=== PATIENT | female | born 1960 | race Caucasian/White ===

== ENCOUNTER → 2017-07-10 14:55 | Outpatient (CLI) | payer OTHER, SELFPAY ==
[2017-06-17 07:40] VITALS: BP 96/66
--- NOTE | 2017-07-10 14:58 | HPBI_ITS ---
MAMMOGRAPHY - BILATERAL SCREENING REASON FOR EXAM: Female, 56 years old. Routine annual screening examination. PERTINENT HISTORY: Sister with breast cancer. Grandmother with breast cancer. Prior right stereotactic biopsy and lumpectomy for atypical hyperplasia. TECHNIQUE: Digital bilateral breast souleymane (3D mammographic acquisition) in the CC and MLO projections. 2-D mediolateral oblique (MLO) and craniocaudad (CC) views of both breasts were obtained. CAD: Full Field Digital Mammography with Computer Added Detection was performed. COMPARISON: Comparison is made with prior study dated January 22, 2016 and May 09, 2014. FINDINGS: Breast Composition: The breasts are extremely dense, which lowers the sensitivity of mammography. There are no dominant masses or suspicious calcifications. Stable focal architectural distortion is seen in the upper lateral portion of the right breast at the site of the surgical procedure. This is unchanged. No other significant abnormalities are identified. There has been no significant change since the prior study. HPBI/SCREENING MAMM (CAD), BILAT IMPRESSION: Stable bilateral screening mammogram. Yearly follow-up mammogram recommended. (A) ASSESSMENT CATEGORY: BIRADS Category 2: Benign. A letter regarding these results will be sent to the patient by the facility within 30 days. Approximately 10% of breast cancers are not detected by mammography. A normal mammogram should not delay biopsy of a clinically suspicious abnormality. [id number] Electronically Signed: Renard Powell MD at 16:02 EST Tel [phone], Service support ,
== END ==
PROVIDERS: Family Provider Family Medicine; PCP Family Medicine; Visit Provider Family Medicine
DX: Z12.31 Encounter for screening mammogram for malignant neoplasm of breast (principal)
CPT/HCPCS: 77063; 77067

== ENCOUNTER → 2018-06-05 16:40 | Outpatient (CLI) | payer OTHER, SELFPAY ==
[2018-06-05 16:48] LABS: Lyme Ab Screen Interpretation REF LAB
[2018-06-05 17:19] LABS: Absolute Neutrophil Count 2.8 X10^3/uL (2.0-7.7); Basophil# 0.04 X10^3/uL; Basophil% 0.7 % (0-1); Eosinophil# 0.04 X10^3/uL; Eosinophils% 0.7 % (0-5); Hematocrit 39.4 % (37-47); Hemoglobin 13.2 g/dl (12.0-15.0); Lymphocyte % 43.5 % (19-41); Mean Corp Hgb Conc 33.5 g/gl (32-36); Mean Corpuscular Hgb 30.7 pg (27.0-32.0); Mean Corpuscular Volume 91.6 fL (81-99); Mean Platelet Vol. 11.1 fl (6.2-12.0); Monocyte# 0.27 X10^3/uL; Monocyte% 4.9 % (0-10); Neutrophil # 2.77 X10^3/uL (2.7-7.7); Neutrophil % 50.2 % (47-70); Platelet Count 151 K/mm3 (150-450); RBC Distribution Width CV 12.6 % (11.6-14.6); RBC Distribution Width SD 42.4 fl (35.1-43.9); White Blood Count 5.5 K/mm3 (4.4-11.0)
[2018-06-05 17:20] LABS: POSITIVE COUNT NO; POSITIVE DIFFERENTIAL NO; POSITIVE MORPHOLOGY NO
[2018-06-05 17:52] LABS: Vitamin B12 438 pg/mL (211-911)
[2018-06-05 18:22] LABS: ALB/GLOB Ratio 1.5 RATIO (0.9-2.4); AST(SGOT) 51 U/L (15-37); Alanine Aminotransfer ALT/SGPT 61 U/L (13-56); Albumin, Serum 4.3 g/dL (3.2-5.0); Alkaline Phosphatase 85 U/L (45-117); Anion Gap 10 (5-15); BUN 20 mg/dL (7-18); BUN/Creat Ratio 18.9 RATIO (10-20); Calcium,Total 9.6 mg/dL (8.5-10.1); Chloride 103 mmol/L (98-107); Creatinine, Serum 1.06 mg/dL (0.55-1.02); EST Glomerular Filtration Rate 57 mL/min (>60); Est Glom Filt Rate - Afr Amer 69 mL/min (>60); Globulin 2.9 g/dL (2.2-4.2); Glucose 88 mg/dL (74-106); Potassium 4.1 mmol/L (3.5-5.1); Protein, Total 7.2 g/dL (6.4-8.2); Sodium Level 139 mmol/L (136-145)
[2018-06-09 08:10] LABS: Testosterone, % Free 0.94 % (0.50-2.80); Testosterone, Free 0.23 ng/dL (0.10-0.85); Testosterone, Total 24 ng/dL (3-41)
[2018-06-09 08:44] LABS: Lyme Scn Total Ab w/Rflx <0.91 ISR (0.00-0.90)
== END ==
PROVIDERS: Family Provider Family Medicine; PCP Family Medicine; Referring Provider Family Medicine; Visit Provider Family Medicine
DX: I88.0 Nonspecific mesenteric lymphadenitis (principal); G25.0 Essential tremor
CPT/HCPCS: 36415; 80053; 82607; 82746; 84402; 84403; 84439; 85025; 86618

== ENCOUNTER → 2018-06-15 12:39 | Outpatient (CLI) | payer OTHER, SELFPAY ==
--- NOTE | 2018-06-15 12:48 | MRI_ITS ---
STUDY: MRI BRAIN WITHOUT CONTRAST REASON FOR EXAM: Female, 57 years old. Tremors for 6 months TECHNIQUE: Standardized multiplanar fat and water weighted pulse sequences were obtained. COMPARISON: None. FINDINGS: Normal size of the ventricles and extra-axial spaces for the patient's age. Normal white matter tracts of the supratentorial brain. Normal bilateral basal ganglia. Normal thalami. There is no extra-axial fluid accumulation. Normal flow voids within the major intracranial circulation suggesting patency by spin echo criteria. Normal sella turcica, pituitary gland, infundibular stalk, optic chiasm and hypothalamus. Normal tectal plate and pineal gland. Normal midbrain, carol and medulla. Normal cerebellum. Normal basal cisterns. Normal bilateral temporal bones. Normal bilateral internal auditory canals. No demonstrated orbital abnormality, within the constraints of a routine brain study. Normal visualized paranasal sinuses. Normal calvarium and skull base. Normal visualized soft tissue structures. Normal visualized upper cervical spine. MRI/Brain without Contrast IMPRESSION: Normal unenhanced MRI of the brain. Electronically Signed: Dain Tinoco MD at 15:05 EST Tel , Service support ,
== END ==
PROVIDERS: Family Provider Family Medicine; PCP Family Medicine; Referring Provider Family Medicine; Visit Provider Family Medicine
DX: G25.0 Essential tremor (principal)
CPT/HCPCS: 70551

== ENCOUNTER → 2018-07-21 08:31 | Outpatient (CLI) | payer OTHER, SELFPAY ==
--- NOTE | 2018-07-21 08:35 | BD_ITS ---
STUDY: DUAL ENERGY X-RAY ABSORPTIOMETRY / DXA REASON FOR EXAM: Female, 57 years old. The patient is postmenopausal. Loss of height. TECHNIQUE: Bone Mineral Density (BMD) measurements of lumbar spine and bilateral hips were obtained. COMPARISON: None. FINDINGS: Lumbar Spine (L1-L4): g/cm2 (0.922) / T-score (-2.1) / Z-score (-1.2) Findings are suggestive of osteopenia with a moderate fracture risk. Left Femur Total: g/cm2 (0.949) / T-score (-0.5) / Z-score (0.3) Left Femoral Neck: g/cm2 (0.858) / T-score (-1.3) / Z-score (-0.2) Right Femur Total: g/cm2 (0.978) / T-score (-0.2) / Z-score (0.5) Right Femoral Neck: g/cm2 (0.918) / T-score (-0.9) / Z-score (0.2) BD/Dexa Bone Density Study IMPRESSION: The patient is considered osteopenic as outlined below according to World [place] Organization (WHO) criteria with a moderate fracture risk. Reference Information: The T-score is the number of standard deviations above or below the standard which is normal for young adults at their peak bone mineral density. The World Health Organization (WHO) interprets the T-scores as follows: Above -1 Normal bone density Between -1 and -2.5 Osteopenia Equal to / or below -2.5 Osteoporosis As a practical clinical guideline, osteopenia may be graded as follows: Mild -1 through -1.5 Moderate -1.6 through -2.0 Severe -2.1 through -2.4 The Z-score is the number of standard deviations above or below age-matched controls. A Z-score of less than -1.5 would be considered abnormal. References: 1. NIH Osteoporosis and Related Bone Diseases http://www.osteo.org 2. International Society for Clinical Densitometry http://www.iscd.org 3. National Osteoporosis Foundation http://www.nof.org Electronically Signed: Renard Powell MD at 13:12 EST , Service support ,
--- NOTE | 2018-07-21 08:36 | BI_ITS ---
MAMMOGRAPHY - BILATERAL SCREENING REASON FOR EXAM: Female, 57 years old. Routine annual screening examination. PERTINENT HISTORY: History of right lumpectomy. Remote right excisional breast biopsy and stereotactic breast biopsy. One month history of tamoxifen. Weight loss. Sister with breast cancer. Grandmother with breast cancer TECHNIQUE: Digital bilateral breast souleymane (3D mammographic acquisition) in the CC and MLO projections. 2-D mediolateral oblique (MLO) and craniocaudad (CC) views of both breasts were obtained. CAD: Full Field Digital Mammography with Computer Added Detection was performed. COMPARISON: Comparison is made with prior study dated July 10, 2017 and January 22, 2016. FINDINGS: Breast Composition: The breasts are extremely dense, which lowers the sensitivity of mammography. The amount of breast tissue has increased as compared to prior study. Stable architectural distortion in the upper lateral portion right breast. There are no dominant masses or suspicious calcifications. Scattered microcalcifications in the left breast. No focal clustering is seen. No other significant abnormalities are identified. BI/SCREENING MAMM (CAD), BILAT IMPRESSION: Dense breast as compared to prior study. Yearly follow-up mammogram recommended. (A) ASSESSMENT CATEGORY: BIRADS Category 2: Benign. A letter regarding these results will be sent to the patient by the facility within 30 days. Approximately 10% of breast cancers are not detected by mammography. A normal mammogram should not delay biopsy of a clinically suspicious abnormality. [id number] Electronically Signed: Renard Powell MD at 10:08 EST , Service support ,
== END ==
PROVIDERS: Family Provider Family Medicine; PCP Family Medicine; Referring Provider Obstetrics & Gynecology; Visit Provider Obstetrics & Gynecology
DX: Z12.31 Encounter for screening mammogram for malignant neoplasm of breast (principal); Z13.820 Encounter for screening for osteoporosis
CPT/HCPCS: 77063; 77067; 77080

== ENCOUNTER → 2018-08-06 12:21 | Outpatient (CLI) | payer OTHER, SELFPAY ==
--- NOTE | 2018-08-06 12:30 | MRI_ITS ---
STUDY: BILATERAL BREAST MR WITHOUT AND WITH CONTRAST REASON FOR EXAM: Female, 57 years old. Dense breasts. History of right lumpectomy, remote right excisional breast biopsy and stereotactic breast biopsy. Grandmother and sister with breast cancer. TECHNIQUE: Multi-sequence multi-echo imaging of both breasts was performed with a dedicated breast coil. T1-weighted and T2-weighted images were performed before the administration of contrast. T1-weighted images were also performed after the administration of Gadavist 5 IV without complications. COMPARISON: Screening mammograms dated July 21, 2017 and July 10, 2017 showing dense fibroglandular tissue with scattered calcifications. FINDINGS: RIGHT BREAST: The breast tissue is markedly dense with minimal background enhancement. There are no abnormal enhancing masses or areas of non-mass enhancement in the right breast. LEFT BREAST: The breast tissue is markedly dense with minimal background enhancement. There are no abnormal enhancing masses or areas of non-mass enhancement in the left breast. There are no enlarged or abnormal lymph nodes. There is no abnormality in the visualized regions of the chest or liver. MRI/Breast Bilateral W/O and W IMPRESSION: No abnormality on the breast MRI examination with contrast. CATEGORY: BIRADS Category 1: Negative. A letter regarding these results will be sent to the patient by the facility within 30 days. Electronically Signed: Huang Wan MD at 15:53 EST , Service support ,
[2018-08-06 13:15] LABS: CREATININE FINGERSTICK 0.9 mg/dL (0.55-1.02)
== END ==
PROVIDERS: Family Provider Family Medicine; PCP Family Medicine; Referring Provider Obstetrics & Gynecology; Visit Provider Obstetrics & Gynecology
DX: R92.2 Inconclusive mammogram (principal)
CPT/HCPCS: 77049; A9585; A4216; C8908

== ENCOUNTER 2018-09-08 14:30 | Outpatient (RCR) | payer SELFPAY ==
--- NOTE | 2019-02-08 13:53 | HP.PT.NRP ---
HP - Discharge Summary (1) - Patient Information FIDEL GIRON was seen in my office for initial evaluation on 09/07/18. The following Plan of Care was established for this patient: - Anticipated Interventions Patient/Client Instruction: Educate patient on: Condition, Plan of Care, Risk Factors, Benefits of Fitness Program For the Purpose of:: To facilitate caregiver knowledge, To improve self management, To prevent re-injury, To improve ability to perform tasks related to life management, To improve tolerance to ADL's Manual Therapy Techniques to Include: Mobilization, Passive ROM, Functional dry needling, Soft tissue mobilization For the Purpose of:: To decrease pain, To increase ROM, To improve health of tissue, To decrease soft tissue restriction, To increase flexibility/ROM This patient was last seen in our office 09/08/18. Pertinent comments regarding their Physical therapy will appear below: Pt. was treated with DN for her foot and gluteal pain. Pt. had no pain at her las visit. Pt. has not been seen in several months and will be DC from PT at this point in time. At this point I will be discontinuing this patient from physical therapy. I would be happy to see this patient again in the future if found appropriate by the physician. Thank you! Zach Ly DPT
== END 2018-09-08 19:00 | disposition home or self-care (01) ==
LOC: PT 14:30
PROVIDERS: Family Provider Family Medicine; PCP Family Medicine
DX: R69 Illness, unspecified (principal)

== ENCOUNTER → 2018-09-10 08:11 | Outpatient (CLI) | payer OTHER, SELFPAY ==
--- NOTE | 2018-09-10 08:12 | RAD_ITS ---
STUDY: X-RAY - PELVIS AND LEFT HIP REASON FOR EXAM: Female, 57 years old. Hip pain TECHNIQUE: 3 views of the pelvis and hip. COMPARISON: None. FINDINGS: There is a non-specific bowel gas pattern. Normal visualized soft tissue structures. Normal bilateral iliac wings, sacroiliac joints and visualized sacrum. Normal bilateral superior and inferior pubic rami. Normal pubic symphysis. Normal bilateral ischial tuberosities. Normal visualized femoral head. Normal acetabulum. Normal hip joint. RAD/HIP, UNI W/ Pelvis 2-3 Views IMPRESSION: Normal x-ray examination of the pelvis and hip. Electronically Signed: Yinka Caicedo MD at 20:41 EDT , Service support ,
--- NOTE | 2018-09-10 08:12 | RAD_ITS ---
STUDY: X-RAY - LUMBAR SPINE REASON FOR EXAM: Female, 57 years old. Low back and left hip pain TECHNIQUE: 4 view(s) of the lumbar spine were obtained. COMPARISON: Prior study of 03/21/2010 FINDINGS: Normal lumbar lordosis. There is no substantial scoliosis. There is a normal alignment of the vertebrae. Normal vertebral bodies and endplates. Normal disc space heights. The soft tissue structures are unremarkable. RAD/L/S Spine Min 4 Views IMPRESSION: Normal x-ray examination of the lumbar spine. Electronically Signed: Yinka Caicedo MD at 20:42 EDT , Service support ,
== END ==
PROVIDERS: Family Provider Family Medicine; PCP Family Medicine; Referring Provider Physician Assistant; Visit Provider Physician Assistant
DX: M25.552 Pain in left hip (principal); M54.5 Low back pain; M79.18 Myalgia, other site
CPT/HCPCS: 72110; 73502

== ENCOUNTER → 2019-10-27 14:56 | Outpatient (CLI) | payer OTHER, SELFPAY ==
--- NOTE | 2019-10-27 14:57 | RAD_ITS ---
STUDY: X-RAY - LEFT KNEE REASON FOR EXAM: Female, 59 years old. 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 COMPARISON: None. FINDINGS: Normal visualized distal femur. Normal visualized proximal tibia and fibula. Normal proximal tibiofibular articulation. There is mild degenerative arthrosis of the medial femorotibial compartment. Normal lateral femorotibial compartment. Normal patellofemoral articulation. The soft tissue structures are unremarkable. RAD/Knee 4 or More Views IMPRESSION: Mild degenerative changes. Electronically Signed: Laya Whittaker MD at 15:28 EDT Tel , Service support ,
== END ==
PROVIDERS: PCP Family Medicine; Referring Provider Physician Assistant; Visit Provider Physician Assistant
DX: M25.562 Pain in left knee (principal)
CPT/HCPCS: 73564

== ENCOUNTER 2019-11-18 07:00 | Outpatient (RCR) | payer OTHER, SELFPAY ==
--- NOTE | 2019-11-02 08:36 | HP.PTEVAL_ITS ---
Patient's Visit Information FIDEL GIRON is a 59 year old F referred to Physical Therapy by TJ Carranza with a diagnosis of Left Pes Anserine Bursitis- Left Proximal Medial Gastroc Strain. Date of Evaluation: 11/02/19 Physical Therapist: Verna Corrales DPT - Visit Plan Frequency: 3x /Week Duration: 3 Weeks Plan: 2x a week 30 for PT (dry needling, manual therapy, ultrasound) then stretching and strength. 1x a week 60 min of stretching/strength. Focus on Core strength/stabilization and GENTLE posterior chain strengthening- (Chronic high HS Injury) - Subjective Patient reports left sided knee bursitis and calf pain. She came for dry needling thought it might be meniscus but doesn't think so. When she is running it stops her- last night when she was doing yoga she was halving popping issues. The knee is painful behind the knee. Will radiat to low hamstring and calf pain. The pain is immediate when she starts then it eases up- most painful running up a hill. Describes the pain as dull and achy to sharp pains. Notices it through the whole run. If she walks the pain is less. Worst: 4/10 Best: 0/10 does have pain doing ADL's. Running- 20 miles a week- 4- normally runs 4-5 miles but does have longer stretches. Took about a week and half off and is taking Meloxicam- which is helping. Running in [employer] or [place]- has not changed shoes recently. Was doing a lot of trail running but no specific injury. Is not currently trail running. Has never had problems with this knee before. Has had a high hamstring/back issues on her left side. 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 Last flare up with her back was 2 years ago. Does body weight training for strength 4x a week. PMHx: none Meds: Meloxicam. Did have an X-ray taken but no injections. No N/T reported. - Objective Posture: Fair- FH, RS increased kyphosis when sitting but is able to correct- does not maintain for long periods of time. Standing posture is good. Gait: no deviation noted. Observation: good muscle mass throughout and equal bilaterally in LE. Heel Walk: reports no discomfort but not easy. Toe Walk: makes her feel better. Squat: fair mechanics- does have mild shift to the right. SLS: Right: 30 sec no LOB Left: 5 sec with increased muscle activation and LOB. Palpation: tender in gluts to the ischial tuberosity to the greater troch- medial and lateral hamstring and medial and lateral calf. Does have trigger points throughout LE. ROM: WFL in all planes of lumbar, hip and knee. Strength: Core: fair, Hip: IR/ER: 4+/5, Extn: 4/5, Flex: 4+/5, Abd: 4/5 with discomfort, Clam: 4+/5, Knee: 5/5, Ankle: 5/5. Flex: HS: moderate restriction, Gastroc: moderate restriction. Special Test: SULAIMAN: negative, Pelvic Alignment: WFL, LLD: negative. - Goals Goal 1:: Patient will be I with HEP and progression Goal Time Frame: 4-6 Weeks Goal 2:: Patient will SLS for 30 sec without LOB on the left LE Goal Time Frame: 4-6 Weeks Goal 3:: Patient will maintain proper posture t/o tx session to demo increased core s/s Goal Time Frame: 4-6 Weeks Goal 4:: Patient will demo 5/5 strength in posterior chain Goal Time Frame: 4-6 Weeks Goal 5:: Patient will report 0/10 pain with running. Goal Time Frame: 4-6 Weeks - Rehabilitation Potential Physical Therapy Diagnosis: Patient presents with hypomobility- she has a chronic (2 year) proximal hamstring strain leading to increased compensation in the left LE. She has decreased strength, flex and muscular endurance leading to muscular imbalance and increased pain. Rehabilitation Potential: Good - Anticipated Interventions Patient/Client Instruction: Educate patient on: Benefits of Fitness Program Therapeutic Exercise to Include: Strength training, Endurance training, Balance training, Coordination, Agility training, Body mechanics, Postural training, Flexibilty training, Gait and locomotor training, Neuromotor development, Dynamic Lumbar Stabilization, Scapular Strength/Stabilization For the Purpose of:: To improve muscle performance and motor function Manual Therapy Techniques to Include: Mobilization, Functional dry needling, Soft tissue mobilization For the Purpose of:: To improve nutrient delivery to tissue TENS: Yes Cryotherapy (ice pack, ice massage): Yes Thermo therapy (hot pack): Yes Ultrasound (thermal/non thermal): Yes For the Purpose of:: To decrease pain, To decrease swelling/inflammation, To improve nutrient delivery to tissue Thank you for the opportunity to evaluate your patient. For Medicare and Medicare HMO plans, please review the plan of care and approve it. It will need to be FAXED BACK to us at [phone] for Medicare purposes. For Medicare only, by signing this I certify the plan of care. Please let me know if there are questions or concerns regarding this plan of care. Physician Signature: Date:
--- NOTE | 2020-02-28 16:01 | HP.PT.NRP ---
FIDEL GIRON was seen in my office for initial evaluation on 11/02/19. The following Plan of Care was established for this patient: Initial Frequency: 3x /Week Initial Duration: 3 Weeks Patient/Client Instruction: Educate patient on: Benefits of Fitness Program Therapeutic Exercise to Include: Strength training, Endurance training, Balance training, Coordination, Agility training, Body mechanics, Postural training, Flexibilty training, Gait and locomotor training, Neuromotor development, Dynamic Lumbar Stabilization, Scapular Strength/Stabilization For the Purpose of:: To improve muscle performance and motor function Manual Therapy Techniques to Include: Mobilization, Functional dry needling, Soft tissue mobilization For the Purpose of:: To improve nutrient delivery to tissue TENS: Yes Cryotherapy (ice pack, ice massage): Yes Thermo therapy (hot pack): Yes Ultrasound (thermal/non thermal): Yes For the Purpose of:: To decrease pain, To decrease swelling/inflammation, To improve nutrient delivery to tissue This patient was last seen in our office . Pertinent comments regarding their Physical therapy will appear below: Patient has not returned to PT in over 6 weeks- appropriate for d/c and return to MD for further evaluation as needed. At this point I will be discontinuing this patient from physical therapy. I would be happy to see this patient again in the future if found appropriate by the physician. Thank you! GLENN NietoT
== END 2019-11-18 19:00 | disposition home or self-care (01) ==
LOC: PT 07:00
PROVIDERS: PCP Family Medicine; Referring Provider Physician Assistant; Visit Provider Physician Assistant
DX: M70.52 Other bursitis of knee, left knee (principal); S86.112D Strain of other muscle(s) and tendon(s) of posterior muscle group at lower leg level, left leg, subsequent encounter
CPT/HCPCS: 97035; 97110; 97140; 97162

== ENCOUNTER → 2020-04-05 07:02 | Outpatient (CLI) | payer OTHER, SELFPAY ==
--- NOTE | 2020-04-05 07:04 | BI_ITS ---
MAMMOGRAPHY - BILATERAL SCREENING REASON FOR EXAM: Female, 59 years old. Routine annual screening examination. PERTINENT HISTORY: Sister with breast cancer. Grandmother with breast cancer. Remote right excisional breast biopsies. TECHNIQUE: Digital bilateral breast shayy (3D mammographic acquisition) in the CC and MLO projections. 2-D mediolateral oblique (MLO) and craniocaudad (CC) views of both breasts were obtained. CAD: Full Field Digital Mammography with Computer Added Detection was performed. COMPARISON: Comparison is made with prior mammogram dated 07/21/2018 and 07/10/2017. Comparison is also made with prior MRI of the breasts dated 08/06/2018. FINDINGS: Breast Composition: The breasts are extremely dense, which lowers the sensitivity of mammography. There are no dominant masses or suspicious calcifications. No other significant abnormalities are identified. There has been no significant change since the prior study. BI/SCREEN MAMM (CAD) W/SHAYY BILAT IMPRESSION: Stable bilateral screening mammogram. Yearly follow-up mammogram recommended. (A) ASSESSMENT CATEGORY: BIRADS Category 1: Negative. A letter regarding these results will be sent to the patient by the facility within 30 days. Approximately 10% of breast cancers are not detected by mammography. A normal mammogram should not delay biopsy of a clinically suspicious abnormality. [id number] Electronically Signed: Renard Powell, at 8:45 EST , Service support ,
== END ==
PROVIDERS: PCP Family Medicine; Referring Provider Student in an Organized Health Care Education/Training Program; Visit Provider Student in an Organized Health Care Education/Training Program
DX: Z12.31 Encounter for screening mammogram for malignant neoplasm of breast (principal); Z80.3 Family history of malignant neoplasm of breast
CPT/HCPCS: 77063; 77067

== ENCOUNTER 2020-05-11 17:54 | Observation (INO) | payer OTHER, SELFPAY ==
--- NOTE | 2020-05-08 09:57 | EKG12_ITS ---
Test Reason : PREOP Blood Pressure : / mmHG Vent. Rate : 046 BPM Atrial Rate : 046 BPM P-R Int : 180 ms QRS Dur : 086 ms QT Int : 456 ms P-R-T Axes : 059 088 033 degrees QTc Int : 399 ms Sinus bradycardia Otherwise normal ECG Confirmed by MIGUEL ARZOLA, NAUN ([id number]), industrial editor COOPER GONZALEZ ([id number]) on 05/09/2020 8:46:40 AM Referred By: Rachel Pickard Confirmed By:NAUN RIVERA MD
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
[2020-05-11] VITALS (32 sets, daily range): BP systolic 72–118; BP diastolic 47–71; PULSE 36–77; RESP 6–19; TEMP 35.9–37; O2SAT 92–100; BMI 20.9; BMI 21.0
[2020-05-11] MEDS: Celecoxib 200 MG Capsule 400 MG PO (10:45)
[2020-05-11] MEDS: Acetaminophen 500 MG Tablet 1000 MG PO ×2 (10:45→23:53)
[2020-05-11] MEDS: Gabapentin 600 MG Tablet PO (10:45)
[2020-05-11] MEDS: Heparin Injection (Vial) 5,000 UNIT/ML VIAL 5000 UNIT SC (10:45)
[2020-05-11 10:49] LABS: Hematocrit 40.8 % (37-47); Hemoglobin 13.6 g/dL (12.0-15.0); Mean Corp Hgb Conc 33.3 g/dL (32-36); Mean Corpuscular Hgb 31.3 pg (27.0-32.0); Mean Corpuscular Volume 93.8 fL (81-99); Mean Platelet Vol. 11.7 fl (6.2-12.0); Platelet Count 131 K/mm3 (150-450); RBC Distribution Width CV 11.9 % (11.6-14.6); RBC Distribution Width SD 41.5 fl (35.1-43.9); Red Blood Count 4.35 M/mm3 (4.2-5.4); White Blood Count 5.1 K/mm3 (4.4-11.0)
[2020-05-11] MEDS: Lactated Ringers 1,000 ML 40 ML IV (11:00)
[2020-05-11 11:05] LABS: Magnesium 2.3 mg/dL (1.6-2.6)
--- NOTE | 2020-05-11 12:00 | HYST_PTH ---
PATIENT: FIDEL ROSALES LOC: [facility] U#:[id number] AGE/SX: 59/F ROOM: [facility]318 RE05/11/[address]: Dr. Rachel Pickard DO : 1960 BED: 1 DIS: 05/12/2020 SPEC #: [id number] RECD: 05/11/20 15:09 STATUS: HUNTER REQ #: [id number] CHRISTA: 05/11/20 12:[address]: Rachel Pickard DEPT: SURGICAL PATHOLOGY RECD BY: Dinorah Cox ENTERED: 05/12/20 08:15 SP TYPE: HYSTERECT OTHR DR: Dr. Ranjit Rosales MD Tissues: Uterus, NOS Procedures: Surgery Specimen Level V HEADER OPERATION: ERAS, lap robotic hysterectomy, BSO, cysto PRE-OP DIAGNOSIS: Simple endometrial hyperplasia TISSUE SUBMITTED: Uterus, cervix, bilateral fallopian tubes and ovaries MICROSCOPIC DIAGNOSIS Uterus, hysterectomy: Cervix - mild chronic inflammation and nabothian cysts. Endometrium - inactive endometrium with denudation. Myometrium - adenomyosis and leiomyoma. Right ovary - corpora albicantia. Right fallopian tube - benign paratubal cysts. Left ovary - corpora albicantia. Left fallopian tube - no pathologic change. AM:abeba 05/15/20 MICROSCOPIC DESCRIPTION Slides are reviewed. GROSS DESCRIPTION Received in fixative is one container labeled with the patient's name and designated uterus. The specimen consists of a uterus with attached cervix and right and left fallopian tubes and ovaries. The uterus with cervix measures 6.5 x 5 x 3.5 cm and weighs 51 gm. The ectocervix is grossly unremarkable. The endocervical canal measures 2.5 cm in length and is grossly unremarkable. The elongated endometrial cavity measures 3 x 1.5 cm. The light calderon endometrium measures up to 0.1 cm in thickness. The myometrium measures 1.5 cm in greatest thickness and contains a single subserosal calderon nodule measuring 1 cm in greatest dimension. The right ovary is light calderon and crinkled in appearance measuring 3.2 x 1.6 x 1 cm. Serial sections do not reveal mass lesions. The adjacent fallopian tube measures 5 cm in length and 0.5 cm in average diameter and contains a normal fimbriated end. The left fallopian tube is similar in appearance. The right ovary measures 4.5 x 2 x 0.8 cm. Serial sections do not reveal mass lesions. The left fallopian tube is similar in appearance to the right fallopian tube and measures 7 cm in length and 0.6 cm in average diameter. No tubo-ovarian adhesions are seen in either the right or left fallopian tubes and ovaries. It Risk Advisor sections are submitted in nine cassettes as follows: 1??anterior and posterior cervix, anterior inked black, 2 & 3 - anterior endometrium/myometrium, 4-6 -posterior endometrium/myometrium, 7 - subserosal nodule, 8 - right fallopian tube and ovary, 9 - left fallopian tube and ovary. Note, the entire endometrial surface is submitted for microscopic examination. / AM:abeba 05/12/20 TC:5 CPT: 82865
[2020-05-11] MEDS: Cefazolin 2 GM in 0.9% Normal Saline 100 ML IV (12:06)
[2020-05-11] MEDS: Ropivacaine 0.5% 30 ML Vial (12:35)
[2020-05-11 14:15] LABS: Bedside Glucose 98 mg/dL (70-110)
--- NOTE | 2020-05-11 14:30 | OP.PCM_ITS ---
Report of Operation Date of Procedure: 05/11/20 Pre-Operative Diagnosis: History of benign endometrial hyperplasia Post-Operative Diagnosis: History of benign endometrial hyperplasia Surgery/Procedure Performed:: Robotic assisted total laparoscopic hysterectomy, bilateral salpingooophorectomy, cystoscopy, lysis of adhesions Description of Surgical Findings:: Normal-appearing external genitalia. Minimal uterine descensus. Normal- appearing uterus, tubes, ovaries. Some bowel adhesions on the left side to the pelvic sidewall. Specimen's removed: Uterus, cervix, bilateral tubes and ovaries Estimated Blood Loss (mL): 100 cc Fluids Replaced: 1400 cc Description of Procedure: Patient taken to the operating room and placed under general anesthesia. Patient placed in the dorsal lithotomy position and prepped and draped in the usual sterile fashion. Lafleur catheter placed. Weighted speculum placed in the posterior vagina and right angle retractor utilized visualize cervix which was grasped with a single-tooth tenaculum. 2 [id number] stitches placed at 3 and 9 o'clock position on the cervix. Cervix gradually dilated and sound placed, noted uterine perforation at this time. Set the manipulator to 7 cm based on uterine size on examination. Small manipulator placed and tied in. Uterus appeared to be mobile on exam. Gloves were changed and the attention was turned to the anterior abdominal wall. Varies needle utilized to insufflate the abdomen, placed through the umbilicus, abdomen insufflated. Supraumbilical incision made with scalpel, trocar placed. Laparoscope was utilized to visualize the entire abdominal cavity. Uterine perforation confirmed, with good placement of uterine manipulator which was allowing uterus to be mobile. Right and left incisions made and trochars placed under direct visualization. Placed left upper quadrant incision made and trocar placed under direct visualization. Right ureter noted peristalsing. Unable to visualize left left ureter status post nephrectomy as well as this area was covered by bowel. Attention turned to the right side of the uterus. Right round ligament grasped coagulated and cut. Vesicouterine peritoneum identified and bladder flap was created. Right IP ligament coagulated in several locations and incised. Dissection carried down towards the right side of the uterus towards the level of the cervix and uterine arteries. Further dissection of the bladder away from the anterior uterus and cervix was completed on this side. At this time attention was then turned to the left side of the uterus. Left round ligament coagulated and cut. Vesicouterine peritoneum on this side was identified and bladder flap was extended to the midline. Right IP ligament was identified, small amount of bowel adhesion was noted in this area which was dissected away. Right IP ligament was coagulated and cut. This dissection was carried down towards the left side of the uterus sequential fashion. Dissection continued down towards the level of the uterine arteries. Further blunt and sharp dissection of the bladder away from the anterior cervix was completed on this side. Left uterine arteries were coagulated in several locations and incised. This was continued allowing the uterine arteries to fall away from the cervix. Right uterine arteries were then coagulated and cut sequentially allowing the uterine arteries to fall away from the cervix. At this time Dr. Benson was called to the operating room to inspect the left side of the pelvis as the dissection of the fallopian tubes and ovaries appeared to be close to the colon. Per his observations and dissection noted to to be a diverticulum in this area. He did not note any opening in the bowel mucosa or concern for thermal injury. Therefore no repairs were necessary at this time. At this time uterus was anteverted and posterior colpotomy was made this was carried circumferentially. Uterus tubes and ovaries were then removed through the vagina. Pelvis was suctioned. Vaginal cuff was closed with a V-Loc stitch. Inspection of the pelvis found that all sites were hemostatic. At this time cystoscopy was completed. Cystoscopy noted intact bladder dome and right ureteral jets, patient had history of nephrectomy. Robot was then undocked. Skin closed with subcuticular stitches and skin glue. At the end of the procedure all needle, lap, sponge counts were correct x3. Urine output was 400 cc clear urine.
[2020-05-11] MEDS: Ondansetron 4 MG/2 ML Vial IV (14:40)
--- NOTE | 2020-05-11 14:45 | DCINST_ITS ---
Discharge Activity: Return to Normal Activity, May not drive while taking narcotic pain medications., May Shower May resume sexual activity in: 6 weeks Weight Bearing Status: Weight bearing as tolerated Call your doctor if your incision/area has: Continuous Slow Oozing, Sudden Increased Bleeding Call your doctor if you observe: Fever of 101 or Higher, Coldness, Increased Pain, Numbness or Tingling, Inability to urinate, Inability to have a bowel movement, Using more than one pad per hour, Shortness of breath, Calf discomfort, Uncontrolled pain Cleanse incision/area with: Soap & Water Allergies/Adverse Reactions: Allergies latex Allergy (Verified 05/11/20 10:44) Anaphylaxis Medications to take at Discharge Oxycodone [Oxyir] 5 mg PO Q6H PRN PRN 5 Days #28 tablet 05/11/20 The following prescriptions were given: Oxycodone [Oxyir] 5 mg PO Q6H PRN PRN 5 Days #28 tablet PRN Reason: Pain Score 6-10 Transmission Status: Received by [facility] Primary Care Physician: Ranjit Rosales MD [Primary Care Provider] - Test Results: Test results from this visit will be discussed in further detail at your follow- up appointment, if applicable. Please Follow Up With: Rachel Pickard DO When: At previously scheduled appointment Proposed Discharge Date: 05/11/20
--- NOTE | 2020-05-11 15:53 | SUR.PHASEI ---
Dr. Gordillo at the bedside along with respiratory therapy. Patient is still only breathing 6 breaths per minute. Bipap was just applied by respiratory therapy. Patient's 02 SATS ARE 100 ON 6L VIA SIMPLE MASK. She is glassy eyed with small pupils. She does respond to her voice and will move her arms and legs on command. Her heart rate drops to the mid 30's but her baseline heart rate is 48. Dr. Gordillo is aware of this. Her BP is 90/64 which is below her 20% and her fluids are running wide open. NO complaints of pain from the patient.
--- NOTE | 2020-05-11 16:20 | SUR.PHASEI ---
This nurse called out to the waiting room to update her Isrrael regarding patient's status. This nurse told him that it is taking her longer to wake up and it is effective her breathing. Patient is responsive and moves her arms and legs on command, but is still on the bipap currently. She is not receiving supplemental oxygen but the machine is set for 14 respirations per minute.
--- NOTE | 2020-05-11 16:58 | CPS ---
Patient was noted to have shallow respirations with little chest movement. RR counted to be between 6-10. Recommended order for BiPAP due to decreased consciousness. Verbal order BiPAP received. BiPAP started at 12/6 14 30%. [employer] had to increase pressures to 14/8 RR 16 for adequate ventilation. FiO2 was decreased to 21% for lack of oxygenation problems. Patient was on BiPAP for a little over 30mins with increased consciousness. BiPAP was therefore stopped and patient was placed on RA.
--- NOTE | 2020-05-11 17:58 | PCM.PN.BLA ---
Progress Note Patient groggy after anesthesia, BP low. Plan to admit overnight obvs. STROKE Vital Signs/Narrative: Vital Signs Temp Pulse Resp BP Pulse Ox 05/11/20 17:00 42 L 16 88/50 L 95 05/11/20 16:45 43 L 16 90/55 L 95 05/11/20 16:30 41 L 16 95/54 L 94 05/11/20 16:15 42 L 19 H 87/54 L 94 05/11/20 16:00 38 L 14 87/54 L 96 05/11/20 15:55 36 L 14 100 05/11/20 15:44 43 L 7 L 90/64 100 05/11/20 15:30 47 L 8 L 94/66 100 05/11/20 15:17 96.7 F L 59 L 6 L 97/64 99
[2020-05-11 18:30] LABS: Hematocrit 30.6 % (37-47); Hemoglobin 10.1 g/dL (12.0-15.0); Mean Corpuscular Hgb 31.5 pg (27.0-32.0); Mean Corpuscular Volume 95.3 fL (81-99); Mean Platelet Vol. 11.8 fl (6.2-12.0); Platelet Count 114 K/mm3 (150-450); RBC Distribution Width CV 11.9 % (11.6-14.6); Red Blood Count 3.21 M/mm3 (4.2-5.4)
[2020-05-11] MEDS: Lactated Ringers 1,000 ML 125 ML IV ×2 (18:57→21:11)
[2020-05-12] VITALS (9 sets, daily range): BP systolic 110–141; BP diastolic 60–76; PULSE 55–76; RESP 16–18; TEMP 36.5–37; O2SAT 96–100
--- NOTE | 2020-05-12 00:20 | NURSING ---
Pt unable to void, bladder scanned for 386cc urine. Straight cathed at this time per order; 400cc of clear, yellow urine drained from bladder at this time. Pt tolerated well. Will continue to monitor.
[2020-05-12] MEDS: Lactated Ringers 1,000 ML 125 ML IV ×2 (04:59→13:49)
[2020-05-12] MEDS: Ondansetron 4 MG/2 ML Vial IV ×2 (05:18→09:53)
[2020-05-12 07:12] LABS: Hematocrit 22.5 % (37-47); Hemoglobin 7.4 g/dL (12.0-15.0); Mean Corp Hgb Conc 32.9 g/dL (32-36); Mean Corpuscular Hgb 31.4 pg (27.0-32.0); Mean Corpuscular Volume 95.3 fL (81-99); Platelet Count 103 K/mm3 (150-450); RBC Distribution Width CV 11.9 % (11.6-14.6); RBC Distribution Width SD 41.2 fl (35.1-43.9); Red Blood Count 2.36 M/mm3 (4.2-5.4); White Blood Count 8.5 K/mm3 (4.4-11.0)
--- NOTE | 2020-05-12 08:29 | PCM.PN.OB ---
Subjective: POD#1 Patient feeling improved from last night. Not passing flatus. Had one episode of emesis. Has gotten up to bathroom. - Physical Exam Vitals/I&O's: Vital Signs Temp Pulse Resp BP Pulse Ox 97.8 F 55 L 16 120/74 98 05/12/20 05:00 05/12/20 06:01 05/12/20 05:00 05/12/20 05:00 05/12/20 07:00 Oxygen Flow Rate (L/min) 2 Oxygen Delivery Method Nasal Cannula Weight: 52.163 kg Body Mass Index (BMI) 21.0 Intake and Output for Last 24 Hours 05/10/20 05/11/20 05/12/20 23:59 23:59 23:59 Intake Total 3492.17 / 3492.17 3375 / 3375 Output Total 400 / 400 750 / 750 Balance 3092.17 / 3092.17 2625 / 2625 General: Alert, Oriented x3, No apparent distress HEENT: Atraumatic, Normocephalic Oral: Moist Mucosa Neck: Supple Lungs: Clear to auscultation Cardiovascular: Regular rate, Regular Rhythm, No murmurs Abdomen: Bowel Sounds Present - mildly distended, soft. No rebound or guarding. Incisions c/d/i Extremities: No edema Neurological: Cranial nerves II-XII grossly intact, Neuro grossly intact Psych/Mental Status: Normal Affect, Appropriate Microbiology Past 72 Hours 05/10/20 10:50 Interface Orders SARS-CoV-2 Antigen (Rapid) - Final Laboratory Results 05/11/20 10:27: POC Glucose 98 05/11/20 10:30: Magnesium 2.3 05/11/20 10:30: WBC 5.1, RBC 4.35, Hgb 13.6, Hct 40.8, MCV 93.8, MCH 31.3, MCHC 33.3, RDW Std Deviation 41.5, RDW Coeff of Supriya 11.9, Plt Count 131 L, MPV 11.7 05/11/20 10:30: Blood Type O POSITIVE, Antibody Screen NEGATIVE 05/11/20 18:08: WBC 7.0, RBC 3.21 L, Hgb 10.1 L, Hct 30.6 L, MCV 95.3, MCH 31.5, MCHC 33.0, RDW Std Deviation 42.0, RDW Coeff of Supriya 11.9, Plt Count 114 L, MPV 11.8 05/12/20 06:48: WBC 8.5, RBC 2.36 L, Hgb 7.4 L, Hct 22.5 L, MCV 95.3, MCH 31.4, MCHC 32.9, RDW Std Deviation 41.2, RDW Coeff of Supriya 11.9, Plt Count 103 L, MPV 12.0 Current Medications Acetaminophen (Acetaminophen 500 Mg Tablet) 1,000 mg PO Q8H PRN PRN PRN Reason: Pain Score 1-3/10 or Fever Last Admin: 05/11/20 23:53 Dose: 1,000 mg Documented by: Lactated Ringer's () 1,000 mls @ 125 mls/hr IV .Q8H COLETTE Last Admin: 05/12/20 04:59 Dose: 125 mls/hr Documented by: Ondansetron HCl (Ondansetron 4 Mg/2 Ml Vial) 4 mg IV Q4H PRN PRN PRN Reason: NAUSEA Last Admin: 05/12/20 05:18 Dose: 4 mg Documented by: Oxycodone HCl (Oxycodone 5 Mg Tablet) 5 - 10 mg PO Q4H PRN PRN PRN Reason: Pain Score 4-10 Simethicone (Simethicone 80 Mg Tablet) 80 mg PO [facility] Last Admin: 05/12/20 08:16 Dose: Not Given Documented by: Sodium Chloride (0.9% Saline Lock 10 Ml Syringe) 10 - 40 ml IV UD PRN PRN Reason: SALINE FLUSH Medical Necessity - Tobacco Use Smoking Status: Never smoker Tobacco Use: Non-smoker Assessment/Plan All Active Problems Screen for colon cancer (Acute) 59 yo POD#1 s/p RA total laparoscopic hysterectomy, bilateral salpingo-oophorectomy and cystoscopy. Patient was admitted over night to allow for recovery from anesthesia and due to hypotension which resolved with fluid resuscitation. 1. Post operative -Pain controlled -One time emesis. Feeling improved since then -D/c leana this morning -Acute blood loss anemia secondary to surgery. Vitals within normal limits. No transfusion at this time, plan to monitor today. -Consumptive thrombocytopenia secondary to surgery Diet: Regular IVFs: LR 125 DVT PPx: SCDs, ambulate. Hold lovenox at this time Dispo: Plan to d/c leana, monitor throughout the day. If stable and feeling well/meeting post op goals this afternoon will discharge then.
[2020-05-12] MEDS: 0.9% Saline Lock 10 ML Syringe IV (11:18)
[2020-05-12] MEDS: Famotidine 20 MG Tablet PO (11:18)
--- NOTE | 2020-05-12 15:48 | PCS.PANDOC ---
PANDEMIC DOCUMENTATION INITIATED: Date: 05/11/2020 Time: 2049
== END 2020-05-12 16:53 | disposition home or self-care (01) ==
LOC: SDC 20:09 → MS3 20:09
PROVIDERS: Anesthesiology; Admitting Provider Student in an Organized Health Care Education/Training Program; PCP Family Medicine; Referring Provider Student in an Organized Health Care Education/Training Program; Visit Provider Student in an Organized Health Care Education/Training Program
PROC: 0UT94ZZ Resection of Uterus, Percutaneous Endoscopic Approach (ICD-10-PCS; CPT 58571; principal; 2020-05-11 11:40)
DX: D25.1 Intramural leiomyoma of uterus (principal); N85.01 Benign endometrial hyperplasia; N83.292 Other ovarian cyst, left side; N83.291 Other ovarian cyst, right side; Z90.5 Acquired absence of kidney; Z20.828 Contact with and (suspected) exposure to other viral communicable diseases
CPT/HCPCS: 00940; 58571; S2900; 36415; 82962; 83735; 85027; 86850; 86900; 86901; 87426; 88307; 93005; 94002; 94762; 96361; 96374; 96376; 99218; 99251; C9803; J7120; A4216; G0378; G0379; G0463; J2405; J3475

== ENCOUNTER → 2021-04-05 15:25 | Outpatient (CLI) | payer OTHER, SELFPAY ==
[2021-04-05 18:13] LABS: Absolute Lymphocyte Count 2.33 X10^3/uL (0.83-4.51); Absolute Neutrophil Count 3.1 X10^3/uL (2.0-7.7); Basophil# 0.06 X10^3/uL; Eosinophil# 0.09 X10^3/uL; Eosinophils% 1.5 % (0-5); Hematocrit 41.5 % (37-47); Hemoglobin 13.9 g/dL (12.0-15.0); Lymphocyte # 2.33 X10^3/ul (0.83-4.51); Lymphocyte % 38.9 % (19-41); Mean Corp Hgb Conc 33.5 g/dL (32-36); Mean Corpuscular Hgb 31.2 pg (27.0-32.0); Mean Corpuscular Volume 93.3 fL (81-99); Mean Platelet Vol. 11.8 fl (6.2-12.0); Monocyte# 0.39 X10^3/uL; Monocyte% 6.5 % (0-10); NRBC Flagged by Analyzer 0 % (0-5); Neutrophil # 3.11 X10^3/uL (2.7-7.7); Neutrophil % 51.9 % (47-70); Platelet Count 171 K/mm3 (150-450); RBC Distribution Width CV 12.1 % (11.6-14.6); Red Blood Count 4.45 M/mm3 (4.2-5.4)
[2021-04-05 18:41] LABS: Anion Gap 4 (5-15); BUN 21 mg/dL (7-18); BUN/Creat Ratio 20.6 RATIO (10-20); Calcium,Total 9.8 mg/dL (8.5-10.1); Chloride 104 mmol/L (98-107); Cholesterol 224 mg/dL (200); Creatinine, Serum 1.02 mg/dL (0.55-1.02); EST Glomerular Filtration Rate 59 mL/min (>60); Est Glom Filt Rate - Afr Amer 71 mL/min (>60); Glucose 65 mg/dL (74-106); High Density Lipoprotein 125 mg/dL; Potassium 4.4 mmol/L (3.5-5.1); Sodium Level 139 mmol/L (136-145); Thyroid Stim Hormone (TSH) 1.06 uIU/mL (0.358-3.74); Triglycerides 65 mg/dL; Very Low Density Lipoprotein 13 mg/dL (5-40)
== END ==
PROVIDERS: PCP Family Medicine; Referring Provider Family Medicine; Visit Provider Nurse Practitioner Family
DX: R42 Dizziness and giddiness (principal); Z13.220 Encounter for screening for lipoid disorders
CPT/HCPCS: 36415; 80048; 80061; 84443; 85025

== ENCOUNTER → 2021-04-12 06:45 | Outpatient (CLI) | payer OTHER, SELFPAY ==
[2021-04-12 09:56] LABS: Glucose GTT- 2 Hour 86 mg/dL (70-120)
[2021-04-12 09:59] LABS: Glucose GTT-30 minutes 140 mg/dL (110-170)
[2021-04-12 10:04] LABS: Glucose GTT- 1 Hour 88 mg/dL (120-170)
[2021-04-12 10:07] LABS: Glucose GTT- Fasting 85 mg/dL (74-106)
[2021-04-12 10:45] LABS: Glucose GTT- 3 Hour 77 mg/dL (74-106)
[2021-04-12 10:56] LABS: Insulin 22.4 mU/L (2.6-37.6)
[2021-04-12 12:05] LABS: Glucose GTT- 4 Hour 60 mg/dL (74-106)
[2021-04-12 13:17] LABS: Glucose GTT- 5 Hour 76 mg/dL (74-106)
== END ==
PROVIDERS: PCP Family Medicine; Referring Provider Nurse Practitioner Family; Visit Provider Nurse Practitioner Family
DX: E16.2 Hypoglycemia, unspecified (principal)
CPT/HCPCS: 82951; 82952; 83525

== ENCOUNTER → 2021-04-17 12:45 | Outpatient (CLI) | payer OTHER, SELFPAY ==
--- NOTE | 2021-04-17 12:51 | ECHOD_ITS ---
Reason For Study: Abn EKG Procedure This was a 2D Doppler, Color Flow transthoracic echocardiogram. The exam was of adequate technical quality. Exam performed in department. Left Ventricle Normal LV size. Left ventricular systolic function is normal. The estimated ejection fraction is 60 %. No evidence for diastolic dysfunction. No regional wall motion abnormalities noted. Right Ventricle Normal RV size. Normal systolic function. Atria Normal left atrium. Normal right atrium. No doppler evidence for ASD. Mitral Valve There is no mitral annular calcification. Normal mitral valve. Mild (1+) mitral valve insufficiency. Tricuspid Valve Normal tricuspid valve. Mild tricuspid valve insufficiency. Unable to estimate RV systolic pressure due to insufficient tricuspid regurgitant envelope. Aortic Valve Trisinus/trileaflet aortic valve. Normal aortic valve. Pulmonic Valve The pulmonic valve is not well visualized. Great Vessels Normal sized aortic root. Pericardium/Pleural No pericardial effusion. MMode/2D Measurements & Calculations LVIDd: 4.0 cm IVSd: 0.79 cm Ao root diam: 2.7 cm LVIDs: 2.6 cm LVPWd: 0.83 cm RVDd: 3.1 cm FS: 35.0 % LAV(MOD-bp): 36.5 ml LVAd ap4: 23.6 cm2 LVAd ap2: 24.2 cm2 LAV(MOD-bp) Indexed: 24.9 ml/m2 LVLd ap4: 7.4 cm LVLd ap2: 7.4 cm LAV(MOD-sp2): 39.1 ml EDV(MOD-sp4): 61.8 ml EDV(MOD-sp2): 64.6 ml LAV(MOD-sp4): 27.3 ml EDV(sp4-el): 63.7 ml EDV(sp2-el): 66.9 ml LVAs ap4: 13.2 cm2 LVAs ap2: 14.0 cm2 LVLs ap4: 5.9 cm LVLs ap2: 6.5 cm ESV(MOD-sp4): 24.8 ml ESV(MOD-sp2): 25.2 ml ESV(sp4-el): 25.0 ml ESV(sp2-el): 25.8 ml EF(MOD-sp4): 59.9 % EF(MOD-sp2): 61.0 % EF(sp4-el): 60.7 % SV(MOD-sp4): 37.0 ml SV(MOD-sp2): 39.4 ml SV(sp4-el): 38.6 ml LA dimension(2D): 3.1 cm LA A4 area: 11.6 cm2 RA A4 area: 14.3 cm2 Doppler Measurements & Calculations MV E max sebas: 59.3 cm/sec Lat Peak E' Sebas: 14.3 cm/sec Med Peak E' Sebas: 6.9 cm/sec MV A max sebas: 49.9 cm/sec E/E' lat: 4.2 E/E' med: 8.6 MV E/A: 1.2 Ao V2 max: 129.3 cm/sec LV V1 max: 104.9 cm/sec PA V2 max: 96.1 cm/sec Ao max P.7 mmHg LV V1 max P.4 mmHg ECHO/Echo Complete Interpretation Summary Left ventricular systolic function is normal. The estimated ejection fraction is 60 %. Mild (1+) mitral valve insufficiency. Mild tricuspid valve insufficiency. Unable to estimate RV systolic pressure due to insufficient tricuspid regurgita nt envelope. No evidence for diastolic dysfunction. Ordering Physician: Verna Sarkar Referring Physician: Verna Sarkar Performed By: Viola Lieberman RDCS
== END ==
PROVIDERS: PCP Family Medicine; Referring Provider Nurse Practitioner Family; Visit Provider Nurse Practitioner Family
DX: R94.31 Abnormal electrocardiogram [ECG] [EKG] (principal)
CPT/HCPCS: 93306

== ENCOUNTER 2021-05-17 13:16 | Observation (INO) | payer OTHER, SELFPAY ==
--- NOTE | 2021-05-16 14:22 | RAD_ITS ---
STUDY: X-RAY CHEST REASON FOR EXAM: Female, 60 years old. Heart block TECHNIQUE: PA and lateral views of the chest. COMPARISON: Comparison is made with prior study dated 09/06/2014. FINDINGS: There is hyperinflation of the lungs consistent with chronic obstructive lung disease (COPD). Scattered calcified granulomas. There is no demonstrated pleural abnormality. Normal size heart. Calcified bilateral hilar lymph nodes. Normal visualized pulmonary arteries. Normal visualized aortic arch and descending thoracic aorta. There is demineralization of the osseous structures. Normal visualized ribs, clavicles, and shoulders. There is no demonstrated abnormality of the visualized soft tissue structures of the upper abdomen. RAD/Chest PA and Lateral IMPRESSION: Hyperinflation. Scattered calcified granulomas. Electronically Signed: Renard Powell MD at 15:35 EST , Service support ,
[2021-05-16 14:35] LABS: Bacteria 0 SEEN /hpf (None Seen); Mucous, Urine 0 SEEN /hpf (<or=2+); Red Blood Cells-Urine 0 SEEN /hpf (0-5); Squamous Epithelial Cells - UA 0 SEEN /hpf (5-10); White Blood Cells 0 SEEN /hpf (0-5)
[2021-05-16 15:32] LABS: Color, Urine Yellow (Yellow); Glucose, Dipstick Normal (Normal); Ketone-Dipstick Negative (Negative); Leukocyte Esterase-Dipstick 25 /ul (Negative); Nitrite-Dipstick Negative (Negative); Occult Blood-Urine Negative /ul (Negative); Protein-Dipstick Negative (Negative); Urine Bilirubin Dipstick Negative (Negative); Urine Clarity Clear (Clear); Urine Urobilinogen Normal (Normal)
[2021-05-16 15:33] LABS: Hematocrit 42.4 % (37-47); Hemoglobin 14.2 g/dL (12.0-15.0); Mean Corp Hgb Conc 33.5 g/dL (32-36); Mean Corpuscular Hgb 30.9 pg (27.0-32.0); Mean Corpuscular Volume 92.4 fL (81-99); Mean Platelet Vol. 11.1 fl (6.2-12.0); Platelet Count 255 K/mm3 (150-450); RBC Distribution Width CV 11.8 % (11.6-14.6); RBC Distribution Width SD 40.2 fl (35.1-43.9); Red Blood Count 4.59 M/mm3 (4.2-5.4); White Blood Count 8.5 K/mm3 (4.4-11.0)
[2021-05-16 15:37] VITALS: BMI 20.4
[2021-05-16 16:10] LABS: Anion Gap 3 (5-15); BUN 18 mg/dL (7-18); BUN/Creat Ratio 20.1 RATIO (10-20); Calcium,Total 10.3 mg/dL (8.5-10.1); Chloride 106 mmol/L (98-107); EST Glomerular Filtration Rate 68 mL/min (>60); Est Glom Filt Rate - Afr Amer 83 mL/min (>60); Estimated Creatinine Clearance 50.79 ml/min; Glucose 87 mg/dL (74-106); Sodium Level 139 mmol/L (136-145)
--- NOTE | 2021-05-17 13:10 | CL.IE_ITS ---
Patient: FIDEL GIRON Study Date: 05/17/2021 Performing: Nolan Mayer MD : 1960 Age: 60 Gender: female PROCEDURES PERFORMED [id number])INITIAL PACER INSERT+DUAL LEADS INDICATIONS Sinoatrial node dysfunction/Sick sinus syndrome PROCEDURE DETAILS The patient was brought to the Catheterization Lab in the postabsorptive nonsedated state. [facility] consent was obtained prior to the procedure. Local anesthetic was given subcutaneously to the le ft upper chest area with Lidocaine 2%. Incision was made to the left upper chest. Access was achieved and a guidewire was advanced into the left subclavian vein. A peel-away sheath was inserted into the left subclavian vein. PPM ventricular lead was inserted / positioned to right ventricular apex. PPM ventricular lead testing performed. PPM ventricular lead testing performed. A peel-away sheath was in serted into the left subclavian vein rochelle the atrial lead. PPM atrial lead was inserted / positioned to the right atrial appendage. Device pocket was irrigated with antibiotic. PPM generator was box hinge and lock attacher d to the lead(s) and inserted into the pocket. PPM generator was then interrogated by the cad cam programmer. The Atrial lead sutured in place with 2-0 Silk. The Ventricular PM lead sutured in place with 2-0 Silk. Subcutaneous closure was completed with 3-0 Vicryl. Skin closure was completed with 4- 0 Vicryl. Steri-strips applied to Lt chest area. Pressure dressing applied to left chest. The patien t tolerated the procedure well. Estimated Blood Loss: < 10 mls IMPLANTED / EX-PLANTED DEVICES IMPLANTED DEVICE(S): PPM Generator - Language Path: CITIA, Model # C13374 , Serial # [id number] PPM Atrial lead - Language Path: CITIA, Model # 7840 , Serial # [id number] PPM Ventricular lead - Language Path: CITIA, Model # 7841 , Serial # [id number] DEVICE PARAMETERS ATRIAL LEAD PARAMETERS: P wave (mV) - 2.1 Current (mA) - 1.4 threshold (V) - 1 impedence (OHMS) - 730 VENTRICULAR LEAD PARAMETERS: R wave (mV) - 14.4 current (mA) - .8 threshold (V) - .5 impedence (OHMS) - 653 DEVICE PARAMETERS: Mode - ddd lower rate - 45 upper rate - 160 rate response off CONCLUSIONS / RECOMMENDATIONS Device Conclusions: Successful implantation of a dual chamber pacemaker Device Recommendations: Follow up with Primary Care Physician PROCEDURE MEDICATIONS Fentanyl 50 mcg IV Versed 1 mg IV Versed 1 mg IV Oxygen: 2 L/min via nasal cannula Ancef 1 Gm IV @ 05/17/2021 11:07:52 Signed By Nolan Mayer MD On 05/17/2021 13:10:03 Nolan Mayer MD
[2021-05-17 15:15] VITALS: BP 121/76; PULSE 57; RESP 18; TEMP 36.4; O2SAT 97
[2021-05-17 15:17] VITALS: PULSE 60
--- NOTE | 2021-05-17 15:17 | PCS.PANDOC ---
PANDEMIC DOCUMENTATION INITIATED: Date: 01/15/2021 Time: 190
[2021-05-17 16:15] VITALS: BP 112/63; PULSE 56; RESP 16; TEMP 36.9; O2SAT 97
[2021-05-17 19:00] VITALS: PULSE 61
[2021-05-17 22:05] VITALS: BP 129/82; PULSE 51; RESP 16; TEMP 36.8; O2SAT 97
[2021-05-18 03:11] VITALS: PULSE 45
[2021-05-18 04:16] VITALS: BP 148/93; PULSE 51; RESP 18; TEMP 36.5; O2SAT 97
[2021-05-18 04:26] VITALS: O2SAT 97
--- NOTE | 2021-05-18 05:55 | RAD_ITS ---
HISTORY: Post permanant ICD/Pacemaker -- inspiration/expiration. Arms Down. Wet read to MD EXAMINATION/TECHNIQUE: XR Chest 3 Views: Frontal inspiration and expiration radiographs with lateral view. COMPARISON: May 16, 2021 FINDINGS: LINES/DEVICES: 2 lead left chest cardiac pacer with leads projecting over the right atrium and right ventricle. LUNGS: Lungs symmetrically mildly hyperexpanded. No consolidation, edema or effusion. No pneumothorax. MEDIASTINUM AND CARDIOVASCULAR STRUCTURES: Cardiac silhouette not enlarged. Central airways and mediastinal contour are unremarkable. BONES AND SOFT TISSUES: Unremarkable. RAD/Chest 3 View IMPRESSION: Left chest cardiac pacer with leads projecting over right atrium and right ventricle. No pneumothorax. Pulmonary hyperexpansion as can be seen with chronic obstructive pulmonary disease. at 0607 Reported and signed by: Ke Tan MD Electronically Signed: Ke Tan MD at 6:06 EST Tel , Service support ,
[2021-05-18 07:00] VITALS: PULSE 48
--- NOTE | 2021-05-18 07:16 | NURSING ---
This RN taking over care of pt at this time
--- NOTE | 2021-05-18 08:05 | PCM.PN.CARD ---
Subjective Subjective Patient's seen and evaluated. Appears to be doing well. Objective Data Vital Signs: Vital Signs Temp Pulse Resp BP Pulse Ox 97.7 F L 48 L 18 148/93 H 97 05/18/21 04:16 05/18/21 07:00 05/18/21 04:16 05/18/21 04:16 05/18/21 04:26 Oxygen Delivery Method Room Air Weight: 108 lb Body Mass Index (BMI) 20.4 Intake & Output: Intake and Output for Last 24 Hours 05/16/21 05/17/21 05/18/21 23:59 23:59 23:59 Intake Total 440 / 440 Output Total 450 / 450 Balance -10 / -10 Lab / Micro Data Result Diagrams: 05/16/21 14:34 05/16/21 14:34 Cardiology Labs/Tests Rhythm: EKG: ECHO: Stress Test: Cardiac Cath: PCI: CT Surgery: Holter monitor: EPS: PPM: CXR: Chest CT Scan: Radiography Diagnostic Testing: Radiology Impression Chest X-Ray 05/18/21 05:55 IMPRESSION: Left chest cardiac pacer with leads projecting over right atrium and right ventricle. No pneumothorax. Pulmonary hyperexpansion as can be seen with chronic obstructive pulmonary disease. at 0607 Reported and signed by: Ke Tan MD Electronically Signed: Ke Tan MD at 6:06 EST Tel , Service support , Physical Exam Const alert, oriented x3 and no apparent distress General Appearance: cooperative HEENT hearing grossly normal bilaterally Head and Scalp: atraumatic Eyes EOMs intact bilaterally Neck General: normal visual inspection Chest inspection of chest normal and palpation of chest normal Resp normal respiratory effort Auscultation: clear to auscultation bilaterally Cardio regular rate, regular rhythm, S1 normal heart sound and S2 normal heart sound Jugular Venous Distention: JVD GI normal to inspection, nondistended, normoactive bowel sounds Extremity normal capillary refill and no pedal edema Peripheral Pulses: Yes pulses 2+ throughout and femoral pulses present Skin no rashes or lesions noted Neuro oriented x3 and CN's II-XII intact bilaterally Psych Appearance: grossly normal and appropriate Assessment & Plan Assessment/Plan (1) History of permanent cardiac pacemaker placement: PLAN: Status post permanent pacemaker implantation. Pacemaker was interrogated this morning and is noted to be functioning well. Chest x-ray obtained and reviewed. Patient will be scheduled for outpatient follow-up.
[2021-05-18 08:06] VITALS: BP 148/92; PULSE 52; RESP 16; TEMP 36.9; O2SAT 97
--- NOTE | 2021-05-18 08:06 | DCINST_ITS ---
Discharge Instructions Diet Discharge Diet: No restrictions (as you feel able. No excessive stretching. No lifting your arm over your head (keep elbow below shoulder level) until seen for your pacemaker check. Do not lift your elbow away from your side until you are seen for your first visit. Keep the arm sling on if it helps remind you not to lift your arm.) Activity Discharge Activity: May Not Drive May shower in (days): 3 Dressing / Incision Call your doctor if your incision/area has: Continuous Slow Oozing, Sudden Increased Bleeding, Increased Pain/ Swelling, Increased Redness, Foul Smelling D ischarge and Swelling at the incision site Call your doctor if you observe: Fever of 101 or Higher, Shortness of breath, Dizziness, Fainting spells, Swelling in the ankles, Chest pain, Prolonged hiccupping and Increased palpitations (irregular heartbeat) Additional Dressing/Incision Instructions:: When dressing is removed, wash and dry incision. Keep covered with a light bandage if it is rubbing against your clothing. Do not cover the incision with an airtight bandage. Change the bandage daily. Do not remove steri strips. The strips will fall off on their own. Follow Up Care Please Follow Up With: Nolan Mayer MD When: Call [phone] for follow up. Follow-up in pacemaker clinic on 05/23/2021 at 8:30 AM with Soila Shabazz. Test Results: Test results from this visit will be discussed in further detail at your follow-up appointment, if applicable. Discharge Plan Admission Admit Date/Time: 05/17/21 13:16 Attending Provider: Nolan Mayer Primary Care Provider: Ranjit Rosales Discharge Orders/Prescriptions Prescriptions: No Action NK RF: 0 Referrals / Follow Up: Ranjit Rosales MD [Primary Care Provider] - Disposition Disposition (needs filled in before D/C Order can be placed): Home, Self Care
== END 2021-05-18 08:06 | disposition home or self-care (01) ==
LOC: PCU 15:07
PROVIDERS: Admitting Provider Internal Medicine Cardiovascular Disease; PCP Family Medicine; Referring Provider Internal Medicine Cardiovascular Disease; Visit Provider Internal Medicine Cardiovascular Disease
DX: Z45.018 Encounter for adjustment and management of other part of cardiac pacemaker (principal); I49.5 Sick sinus syndrome
CPT/HCPCS: 33208; 36415; 71046; 71047; 80048; 81001; 85027; 99152; 99153; 99218; J7040; J7050; C1894; G0378

== ENCOUNTER 2021-08-31 09:10 | Outpatient (CLI) | payer BC, SELFPAY ==
--- NOTE | 2021-08-31 09:13 | BI_ITS ---
MAMMOGRAPHY - BILATERAL SCREENING REASON FOR EXAM: Female, 60 years old. Routine annual screening examination. PERTINENT HISTORY: Personal history of breast cancer. Prior left lumpectomy. Sister with breast cancer. Grandmother with breast cancer. Remote right excisional breast biopsy. TECHNIQUE: Digital bilateral breast shayy (3D mammographic acquisition) in the CC and MLO projections. 2-D mediolateral oblique (MLO) and craniocaudad (CC) views of both breasts were obtained. CAD: Full Field Digital Mammography with Computer Added Detection was performed. COMPARISON: Comparison is made with prior study dated 04/05/2020 and 07/21/2018. FINDINGS: Breast Composition: The breasts are extremely dense, which lowers the sensitivity of mammography. There are no dominant masses or suspicious calcifications. Postsurgical changes are seen in the upper lateral aspect of the left breast with prior lumpectomy. No other significant abnormalities are identified. There has been no significant change since the prior study. BI/SCRN MAMM (CAD)W/SHAYY BILAT IMPRESSION: Stable bilateral screening mammogram. Yearly follow-up mammogram recommended. (A) ASSESSMENT CATEGORY: BIRADS Category 2: Benign. A letter regarding these results will be sent to the patient by the facility within 30 days. Approximately 10% of breast cancers are not detected by mammography. A normal mammogram should not delay biopsy of a clinically suspicious abnormality. [id number] Electronically Signed: Renard Powell MD at 10:29 EDT ,
== END 2021-08-31 23:59 | disposition home or self-care (01) ==
LOC: OPBI 09:11
PROVIDERS: PCP Family Medicine; Referring Provider Student in an Organized Health Care Education/Training Program; Visit Provider Student in an Organized Health Care Education/Training Program
DX: Z12.31 Encounter for screening mammogram for malignant neoplasm of breast (principal)
CPT/HCPCS: 77063; 77067

== ENCOUNTER 2021-09-07 08:00 | Outpatient (RCR) | payer BC, SELFPAY ==
--- NOTE | 2021-08-08 09:55 | HP.PTEVAL_ITS ---
Patient's Visit Information FIDEL GIRON is a 60 year old F referred to Physical Therapy by TJ Carranza with a diagnosis of Right Hamstring Injury. Date of Evaluation: 08/08/21 Physical Therapist: Verna Corrales DPT - Visit Plan Frequency: 3x /Week Duration: 3 Weeks Plan: Aquatic PT- focus on LE and core strength/stabilization. Acute Hamstring and Glut Strain - Subjective Patient reports that she was running and tripped on the 08/01 and len her right leg. She went to urgent care and had x-rays taken which were negative. She just started swimming and has no pain swimming (using a pull boy to limit kicking)- she can walk on even surfaces but does feel it. Unable to run in water or on the land. Pain is located hamstring insertion, sacrum and lateral aspect of the right hip. Pain does radiate down the hamstring to the knee. Describes the pain as sharp/shooting and dull and achy. Worst: 09/09 Agg: longer strides, turning, pivoting, sitting. Eases: ice Best: 06/11. Sleep: not disturbed- side sleeper. No N/T in the leg. She has not had any injuries on her right side but does have chronic issues on the left. Very active- she was running about 25 miles a week- slow due to her left side. Good shoes- no inserts or orthotics in shoes. No loss or change in bowel or bladder. Waiting to hear from insurance on MRI. X-rays which were negative. PMHx: Pacemaker, hysterectomy Meds: Meloxicam - Objective Posture: good throughout session. Gait: antalgic- decreased stance on the right LE with decreased stride length. HR/TR: able without pain. ROM: Lumbar: flexion: hands to shins, all other motions WFL, Hip: WFL no pain with ROM. Strength: Core: fair, Hip: flexion: 4-/5 with pain, Extn: 4-/5 with , IR/ER: 4- /5 with pain, Abd: 5/5 no pain, Add: 5/5 no pain Knee: Hamstrin/38 on left 14/16 on right with pain, Extn: 5/5, Ankle: 5/5. Flex: Hamstring 90/90: 120 degrees with pain, Gastroc: moderate. Palpation: tender along gluts from sacrum to greater troch, ischial tuberosity insertion of hamstring, and along hamstring to the knee. SLS: 10 sec then loss of balance and reports of instability and pain - Special Tests L/S Slump test left side: Negative L/S Slump test right side: Negative L/S Left Straight Leg Raise: Negative L/S Right Straight Leg Raise: Negative R Hip Scour: Negative R Hip SULAIMAN - Intraarticular Pathology: Positive R Hip FADDIR - Labrum: Positive R Hip Trendelenberg - Glut Medius: Positive R Knee Valgus - MCL: Negative R Knee Varus - LCL: Negative - Balance/Special Test Scores Lower Extremity Functional Score: 48 - Goals Goal 1:: Patient will be I with HEP and progression Goal Time Frame: 4-6 Weeks Goal 2:: Patient will ambulate >300 feet with a normalized gait pattern and equal stride length Goal 3:: Patient will report no pain with running and return to all ADL's. Goal Time Frame: 4-6 Weeks Goal 4:: Patient will SLS for 30 sec without loss of balance and good pelvic alignment - Rehabilitation Potential Physical Therapy Diagnosis: Patient presents with hypomobility- she has decreased pain free ROM, LE and core strength/stabilization, flex and muscular endurance s/p fall leading to abnormal gait pattern and increased pain with ADL's. Rehabilitation Potential: Good - Anticipated Interventions Patient/Client Instruction: Educate patient on: Benefits of Fitness Program Therapeutic Exercise to Include: Strength training, Endurance training, Balance training, Coordination, Agility training, Body mechanics, Postural training, Flexibilty training, Gait and locomotor training, Neuromotor development, In an aquatic setting, Dynamic Lumbar Stabilization, Scapular Strength/Stabilization For the Purpose of:: To improve muscle performance and motor function Thank you for the opportunity to evaluate your patient. For Medicare and Medicare HMO plans, please review the plan of care and approve it. It will need to be FAXED BACK to us at [phone] for Medicare purposes. For Medicare only, by signing this I certify the plan of care. Please let me know if there are questions or concerns regarding this plan of care. Physician Signature: Date:
--- NOTE | 2021-09-07 09:06 | HP.PTREVAL_ITS ---
TJ Carranza, It has been my pleasure to treat FIDEL GIRON over the last 9 visits for Right Hamstring Injury. Please see the progress note below for an update on the physical therapy plan of care! Subjective: Pt. reports doing better, but felt like therapy did not focus much on her HS. She reports she can run for about 3 miles at this point in time be fore it starts to hurt more. She reports having pain at piriformis region and at proximal HS region on L side. Objective/Function: ROM: Pt. has good ROM of L hip, slight tightness into ER with reports mild increase in symptoms. Pt. has very tight HS as well on L side. She has been stretching light at home, mostly of her HS and running up to 3 miles. She is planning to run the [email or web address] next week. Pt. has some concerns about her pain and stiffness. Pt. is requesting trying DN and other modes to increase her tolerance to running. I agree DN could have some benefit and progressive mobility, strengthening. Plan Plan: Add in DN next week prior to marathon. Possible follow up after wards. Balance/Gait/Functional tests - Balance/Special Test Scores Lower Extremity Functional Score: 57 Goals Goal 1:: Patient will be I with HEP and progression Goal Time Frame: 4-6 Weeks Goal Progress: Progressing Goal 2:: Patient will ambulate >300 feet with a normalized gait pattern and equal stride length Goal Progress: Goal Met Goal 3:: Patient will report no pain with running and return to all ADL's. Goal Time Frame: 4-6 Weeks Goal Progress: Progressing Goal 4:: Patient will SLS for 30 sec without loss of balance and good pelvic alignment Goal Progress: Goal Met Anticipated Interventions Patient/Client Instruction: Educate patient on: Benefits of Fitness Program Therapeutic Exercise to Include: Strength training, Endurance training, Balance training, Coordination, Agility training, Body mechanics, Postural training, Flexibilty training, Gait and locomotor training, Neuromotor development, In an aquatic setting, Dynamic Lumbar Stabilization, Scapular Strength/Stabilization For the Purpose of:: To improve muscle performance and motor function Please do not hesitate to contact me at [phone] by phone or if you have questions or concerns regarding this new plan of care! Sincerely, Zach Ly DPT
--- NOTE | 2021-11-15 16:29 | HP.PT.NRP ---
FIDEL GIRON was seen in my office for initial evaluation on 08/08/21. The following Plan of Care was established for this patient: Initial Frequency: 3x /Week Initial Duration: 3 Weeks Patient/Client Instruction: Educate patient on: Benefits of Fitness Program Therapeutic Exercise to Include: Strength training, Endurance training, Balance training, Coordination, Agility training, Body mechanics, Postural training, Flexibilty training, Gait and locomotor training, Neuromotor development, In an aquatic setting, Dynamic Lumbar Stabilization, Scapular Strength/Stabilization For the Purpose of:: To improve muscle performance and motor function This patient was last seen in our office . Pertinent comments regarding their Physical therapy will appear below: Patient has not attended PT in over 30 days- appropriate to be d/c and return to MD for further evaluation as needed. At this point I will be discontinuing this patient from physical therapy. I would be happy to see this patient again in the future if found appropriate by the physician. Thank you! Verna Corrales, GLENNT Balance/Gait/Functional tests - Balance/Special Test Scores Lower Extremity Functional Score: 57
== END 2021-09-07 19:00 | disposition home or self-care (01) ==
LOC: PT 08:00
PROVIDERS: PCP Family Medicine; Referring Provider Physician Assistant; Visit Provider Physician Assistant
DX: S79.8 Other specified injuries of hip and thigh (principal)
CPT/HCPCS: 97113; 97162; 97164

== ENCOUNTER 2021-09-19 10:14 | Outpatient (CLI) | payer BC, SELFPAY ==
--- NOTE | 2021-09-19 10:15 | MRI_ITS ---
STUDY: MR PELVIS WITHOUT CONTRAST REASON FOR EXAM: Female, 60 years old. injury, hamstring -- hamstring orgin, ishium TECHNIQUE: Standardized fat and water weighted pulse sequences were obtained in all 3 orthogonal planes. COMPARISON: None. FINDINGS: Normal urinary bladder. Normal visualized small intestine. Normal visualized colon. There is no pelvic fluid. There is no pelvic mass lesion or lymphadenopathy. Normal visualized pelvic arteries. Normal osseous structures. Normal abdominal wall. Increased signal intensity visualized on the STIR sequence within and surrounding the conjoined tendon of the hamstring muscles more prominent on the left, fluid visualized along the medial aspect of the semimembranosus tendon bilaterally Unremarkable signal intensity visualized within the periosteum of the underlying ischial bones, no evidence of T2 prolongation within the ischial bone to suggest a bony contusion. Heterogeneous signal intensity visualized within the bone suggestive of for yellow marrow no evidence of fracture planes or bony contusion. Findings suggestive of tendinopathy, cannot rule out low-grade tear. 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
[2021-09-19 10:55] VITALS: BP 122/88; PULSE 65; RESP 16; O2SAT 99
[2021-09-19 11:10] VITALS: BP 117/77; PULSE 65; O2SAT 98
[2021-09-19 11:26] VITALS: BP 133/82; PULSE 65; O2SAT 97
== END 2021-09-19 23:59 | disposition home or self-care (01) ==
PROVIDERS: PCP Family Medicine; Visit Provider Physician Assistant
DX: S76.301A Unspecified injury of muscle, fascia and tendon of the posterior muscle group at thigh level, right thigh, initial encounter (principal); S76.311A Strain of muscle, fascia and tendon of the posterior muscle group at thigh level, right thigh, initial encounter
CPT/HCPCS: 72195

== ENCOUNTER → 2022-01-11 | Outpatient (CLI) | payer BC, SELFPAY ==
[2022-01-11 13:56] LABS: Anion Gap 4 (5-15); BUN 17 mg/dL (7-18); Calcium,Total 9.6 mg/dL (8.5-10.1); Chloride 107 mmol/L (98-107); EST Glomerular Filtration Rate 68 mL/min (>60); Est Glom Filt Rate - Afr Amer 83 mL/min (>60); Glucose 149 mg/dL (74-106); Magnesium 2.1 mg/dL (1.6-2.6); Potassium 4.2 mmol/L (3.5-5.1); Sodium Level 139 mmol/L (136-145)
== END | disposition home or self-care (01) ==
LOC: LAB 12:25
PROVIDERS: PCP Family Medicine; Referring Provider Internal Medicine Cardiovascular Disease; Visit Provider Internal Medicine Cardiovascular Disease
DX: I45.5 Other specified heart block (principal); Z95.0 Presence of cardiac pacemaker
CPT/HCPCS: 36415; 80048; 83735

== ENCOUNTER → 2022-09-02 | Outpatient (CLI) | payer BC, SELFPAY ==
--- NOTE | 2022-09-02 07:03 | BI_ITS ---
MAMMOGRAPHY - BILATERAL SCREENING REASON FOR EXAM: Female, 61 years old. Routine annual screening examination. PERTINENT HISTORY: Personal history of breast cancer. The patient is status post right lumpectomy with tamoxifen therapy. Sister with breast cancer. Grandmother with breast cancer. TECHNIQUE: Digital bilateral breast shayy (3D mammographic acquisition) in the CC and MLO projections. 2-D mediolateral oblique (MLO) and craniocaudad (CC) views of both breasts were obtained. CAD: Full Field Digital Mammography with Computer Added Detection was performed. COMPARISON: Comparison is made with prior study of August 31, 2021 and April 05, 2020. FINDINGS: Breast Composition: The breasts are extremely dense, which lowers the sensitivity of mammography. There are no dominant masses or suspicious calcifications. No other significant abnormalities are identified. There has been no significant change since the prior study. BI/SCRN MAMM (CAD)W/SHAYY BILAT IMPRESSION: Stable bilateral screening mammogram. Yearly follow-up mammogram recommended. (A) ASSESSMENT CATEGORY: BIRADS Category 1: Negative. A letter regarding these results will be sent to the patient by the facility within 30 days. Approximately 10% of breast cancers are not detected by mammography. A normal mammogram should not delay biopsy of a clinically suspicious abnormality. [id number] Electronically Signed: Renard Powell MD at 8:09 EDT ,
== END | disposition home or self-care (01) ==
LOC: OPBI 07:00
PROVIDERS: PCP Family Medicine; Referring Provider Student in an Organized Health Care Education/Training Program; Visit Provider Student in an Organized Health Care Education/Training Program
DX: Z12.31 Encounter for screening mammogram for malignant neoplasm of breast (principal); Z85.3 Personal history of malignant neoplasm of breast; Z80.3 Family history of malignant neoplasm of breast
CPT/HCPCS: 77063; 77067

== ENCOUNTER → 2023-03-28 | Outpatient (CLI) | payer BC, SELFPAY | END | disposition home or self-care (01) | LOC: CVS 13:27 | PROVIDERS: PCP Family Medicine; Referring Provider Internal Medicine Cardiovascular Disease; Visit Provider Internal Medicine Cardiovascular Disease | DX: I10 Essential (primary) hypertension (principal) | CPT/HCPCS: 93788 ==

== ENCOUNTER → 2023-06-20 | Outpatient (CLI) | payer BC, SELFPAY ==
--- OUTSIDE RECORDS SUMMARY | 2023-06-20 15:26 | XMS RPT_ITS | CCD ---
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 Name Role Phone Provider, External Unavailable [phone] Zo Rosales Primary Care Provider Marianne Jordan Unavailable Unavailable Waldemar Enriquez Unavailable [phone] KEELEY SALCEDO Admitting Unavailable ZO ROSALES Consulting Unavailable MATIASKEELEY Attending Unavailable MATIASKEELEY POLANCO Primary Care Unavailable PROVIDER, UNKNOWN Consulting Unavailable KEELEY SALCEDO Admitting Unavailable MATIASKEELEY POLANCO Attending Unavailable MATIASKEELEY POLANCO Primary Care Unavailable Problems Problem Classification Problem Date Documented Da te Episodic/Chronic Residual codes; unclassified (1 source) Family history of breast cancer; Translations: [Family history of breast cancer] Episodic Results Test Name Value Interpretation Reference Range Facil ity Encounters Encounter Date Encounter Type Care Provider Facility Start: 09-04-2020 End: 09-04-2020 Patient encounter procedure KEELEY Mirella [facility] Start: 08-14-2020 End: 08-14-2020 Patient encounter procedure KEELEY Vu [facility] Start: 04-11-2020 End: 04-11-2020 Subsequent hospital visit by physician Waldemar Enriquez Work Phone: [facility] Plan of Treatment Date Care Activity Detail Author Start: 05-09-2020 End: 05-09-2020 Telehealth Ancillary 05/09/2020 Telehealth Ancillary Genetics Marianne Jordan, [facility] [place] [address] [facility] Start: 02-01-2020 FLU (#1) FLU (#1) [facility] Start: 1982 Microscopic observat ion Cyto stain Nom (Cvx) Pap Smear [facility] Start: 1980 Hepatitis B (1 of 3 - Risk 3-dose series) Hepatitis B (1 of 3 - Risk 3-dose series) [facility] Start: 1977 MenB (1 of 2 - MenB 2-Dose Series) MenB (1 of 2 - MenB 2-Dose Series) [facility] Start: 1968 Tetanus Diphtheria a nd Pertussis Vaccines (1 - Tdap) Tetanus Diphtheria and Pertussis Vaccines (1 - Tdap) [facility] Start: 1962 Hepatitis A (1 of 2 - Risk 2-dose series) Hepatitis A (1 of 2 - Risk 2-dose series) [facility] Start: 1962 MMR (1 of 1 - Standa rd series) MMR (1 of 1 - Standard series) [facility] Start: 1962 Varicella (1 of 2 - 2-dose childhood series) Varicella (1 of 2 - 2-dose childhood series) [facility] End: 04-11-2020 Genetic Sendout: CancerNext Panel with [facility] Genetic Sendout: CancerNext Panel with [facility] Lab Timed Family history of breast cancer 1 Occurrences starting 04/11/2020 until 04/11/2020 [facility] Payers Date Payer Category Payer Private Health Insurance [employer] Bill WENDY [id number] 2019-Present [address] [id number] 1960 Unknown [id number] 1960 Unknown [id number] Private Health Insurance [id number] Social History Date Type Detail Facility Start: 04-11-2020 Tobacco smoking status NHIS Never sm oker [facility] Start: 04-11-2020 Tobacco use and exposure Never used [facility] Start: 1960 Sex Assigned At Not on file [facility] Exposure to SARS-CoV -2 (event) Not sure [facility] Progress note 01-04-2021 Note Date & Type Note Facility 01-04-2021 Note HNO ID: [id number] Author: 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 Author Type: Nurse Practitioner Type: Progress Notes Filed: 01/04/2021 10:43 AM Note Text: This note was created using NoteWriter. Subjective Ignacio Rosales is a 60 year old female. 60 year old female with no PMH presents requesting COVID testing. Endorses that she was notified today that her employees tested positive yesterday. Endorses that she works at [employer] Denies that she is experiencing symptoms presently. Denies symptoms. Denies fever or chills. Denies cough. Denies N/V/D. just want to be safe Endorses she was vaccinated Pfizer August 2020. The history is provided by the patient and the spouse. Illness The current episode started today. The onset is undetermined. Episode frequency: n/a. The problem has been unchanged. Current severity: denies sx. Nothing relieves the symptoms. Nothing aggravates the symptoms. Pertinent negatives include no orthopnea, no fever, no decreased vision, no double vision, no eye itching, no photophobia, no abdominal pain, no constipation, no diarrhea, no nausea, no vomiting, no congestion, no ear discharge, no ear pain, no headaches, no hearing loss, no mouth sores, no rhinorrhea, no sore throat, no stridor, no swollen glands, no muscle aches, no neck pain, no neck stiffness, no cough, no URI, no wheezing, no rash, no diaper rash, no eye discharge, no eye pain and no eye redness. She has been eating and drinking normally. Urine output has been normal. The last void occurred less than 6 hours ago. There were sick contacts at work. She has received no recent medical care. PAST MEDICAL HISTORY Diagnosis Date - Abnormal mammogram, unspecified 06/08/07 right breast - Abnormal Pap smear - Excessive menstruation - Mammographic microcalcification 06/08/07 - PONV (postoperative nausea and vomiting) PAST SURGICAL HISTORY Procedure Laterality Date - DELIVERY ONLY x2 - ENDOMETRIAL BIOPSY 04/20/2009 - HYSTEROSCOPY,W/ENDOMETRIAL ABLATION 04/2012 Novasure ablation - LIGATE FALLOPIAN TUBE 1994 - LUMPECTOMY/RADIOTHERAPY DIAG MAMM/A10 [facility] - PAST SURGICAL HISTORY OF 2000 shoulder bicep and deltoid repair left - PAST SURGICAL HISTORY OF 1989 suture of clavical left - PAST SURGICAL HISTORY OF 2006 left kidney removal for donation - STEREOTACTIC CORE BIOPSY 07/14/07 right breast ALLERGIES Latex MEDICATIONS albuterol HFA (VENTOLIN HFA) 90 mcg/actuation inhaler Inhale 2 Puffs as instructed every 4 hours as needed for Wheezing/Shortness of Breath. albuterol HFA (PROAIR HFA) 90 mcg/actuation inhaler Inhale 2 Puffs as instructed every 4 hours as needed. codeine-guaiFENesin (ROBITUSSIN AC) 10-100 mg/5 mL syrup Take 5-10 mL by mouth four times daily as needed for Cough. May cause drowsiness. FAMILY HISTORY Problem Relation Age of Onset - Breast Cancer Sister - Heart Mother - Heart Father - Breast Cancer Maternal Grandmother - Breast Cancer Paternal Grandmother - Cancer Father sinus Social History Tobacco Use - Smoking status: Never Smoker - Smokeless tobacco: Never Used Substance Use Topics - Alcohol use: Yes Comment: socially - Drug use: No Review of Systems Constitutional: Negative for activity change, appetite change, chills, diaphoresis, fatigue and fever. HENT: Negative for congestion, ear discharge, ear pain, hearing loss, mouth sores, rhinorrhea, sinus pressure, sinus pain, sneezing, sore throat, tinnitus, trouble swallowing and voice change. Eyes: Negative for double vision, photophobia, pain, discharge, redness and itching. Respiratory: Negative for apnea, cough, choking, chest tightness, wheezing and stridor. Cardiovascular: Negative for chest pain, palpitations, orthopnea and leg swelling. Gastrointestinal: Negative for abdominal pain, constipation, diarrhea, nausea and vomiting. Musculoskeletal: Negative for arthralgias, back pain, gait problem, joint swelling, myalgias and neck pain. Skin: Negative for color change, pallor, rash and wound. Allergic/Immunologic: Negative for environmental allergies, food allergies and immunocompromised state. Neurological: Negative for dizziness, tremors, seizures, syncope, facial asymmetry, speech difficulty, weakness, light-headedness, numbness and headaches. Hematological: Negative for adenopathy. Does not bruise/bleed easily. Psychiatric/Behavioral: Negative for agitation and behavioral problems. Objective BP 112/70 Pulse 76 Temp 36.4 ?C (97.6 ?F) Resp 16 Wt 49 kg (108 lb) LMP 04/02/2012 SpO2 95% BMI 20.41 kg/m? Physical Exam Vitals and nursing note reviewed. Constitutional: General: She is not in acute distress. Appearance: Normal appearance. She is normal weight. She is not ill-appearing, toxic-appearing or diaphoretic. HENT: Head: Normocephalic and atraumatic. Right Ear: Ear canal and external ear normal (more content not included)... 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 This clinical summary was aggregated from multiple sources. Caution should be exercised in using it in the provision of clinical care. This summary normalizes information from multiple sources, and as a consequence, information in this document may materially change the coding, format and clinical context of patient data. In addition, data may be omitted in some cases. CLINICAL DECISIONS SHOULD BE BASED ON THE PRIMARY CLINICAL RECORDS. [facility] [employer] provides no warranty or guarantee of the accuracy or completeness of information in this document.
[2023-06-20 17:29] LABS: Absolute Lymphocyte Count 2.31 X10^3/uL (0.83-4.51); Absolute Neutrophil Count 5.3 X10^3/uL (2.0-7.7); Basophil# 0.06 X10^3/uL; Basophil% 0.7 % (0-1); Eosinophil# 0.06 X10^3/uL; Eosinophils% 0.7 % (0-5); Hematocrit 38.9 % (37-47); Hemoglobin 13.1 g/dL (12.0-15.0); Lymphocyte # 2.31 X10^3/ul (0.83-4.51); Lymphocyte % 28.1 % (19-41); Mean Corp Hgb Conc 33.7 g/dL (32-36); Mean Corpuscular Hgb 31.3 pg (27.0-32.0); Mean Corpuscular Volume 93.1 fL (81-99); Mean Platelet Vol. 11.3 fl (6.2-12.0); Monocyte# 0.46 X10^3/uL; Monocyte% 5.6 % (0-10); NRBC Flagged by Analyzer 0 % (0-5); Neutrophil # 5.31 X10^3/uL (2.7-7.7); Neutrophil % 64.8 % (47-70); Platelet Count 162 K/mm3 (150-450); RBC Distribution Width CV 12.1 % (11.6-14.6); RBC Distribution Width SD 41.3 fl (35.1-43.9); Red Blood Count 4.18 M/mm3 (4.2-5.4); White Blood Count 8.2 K/mm3 (4.4-11.0)
[2023-06-20 18:00] LABS: Vitamin B12 467 pg/mL (211-911)
[2023-06-20 18:12] LABS: ALB/GLOB Ratio 1.2 RATIO (0.9-2.4); AST(SGOT) 24 U/L (15-37); Alanine Aminotransfer ALT/SGPT 25 U/L (13-56); Albumin, Serum 3.7 g/dL (3.2-5.0); Alkaline Phosphatase 67 U/L (45-117); Anion Gap 5 (5-15); BUN 22 mg/dL (7-18); BUN/Creat Ratio 25.7 RATIO (10-20); Calcium,Total 9.7 mg/dL (8.5-10.1); Chloride 107 mmol/L (98-107); Creatinine, Serum 0.86 mg/dL (0.55-1.02); EST Glomerular Filtration Rate 71 mL/min (>60); Est Glom Filt Rate - Afr Amer 86 mL/min (>60); Glucose 112 mg/dL (74-106); Protein, Total 6.7 g/dL (6.4-8.2); Sodium Level 140 mmol/L (136-145); Thyroid Stim Hormone (TSH) 1.64 uIU/mL (0.358-3.74)
[2023-06-22 08:08] LABS: Lyme Scn Total Ab w/Rflx Negative (Negative)
== END | disposition home or self-care (01) ==
LOC: MTLAB 15:15
PROVIDERS: PCP Family Medicine; Referring Provider Family Medicine; Visit Provider Family Medicine
DX: Z00.00 Encounter for general adult medical examination without abnormal findings (principal); I49.5 Sick sinus syndrome; Z12.11 Encounter for screening for malignant neoplasm of colon; R53.83 Other fatigue; Z52.4 Kidney donor
CPT/HCPCS: 36415; 80053; 82607; 84443; 85025; 86618

== ENCOUNTER → 2023-11-03 | Outpatient (CLI) | payer BC, SELFPAY ==
[2023-11-03 10:32] LABS: Absolute Lymphocyte Count 2.09 X10^3/uL (0.83-4.51); Absolute Neutrophil Count 2.8 X10^3/uL (2.0-7.7); Basophil# 0.06 X10^3/uL; Basophil% 1.1 % (0-1); Eosinophil# 0.12 X10^3/uL; Eosinophils% 2.2 % (0-5); Hematocrit 43.6 % (37-47); Hemoglobin 14.3 g/dL (12.0-15.0); Lymphocyte # 2.09 X10^3/ul (0.83-4.51); Lymphocyte % 38.8 % (19-41); Mean Corp Hgb Conc 32.8 g/dL (32-36); Mean Corpuscular Hgb 30.2 pg (27.0-32.0); Mean Corpuscular Volume 92.2 fL (81-99); Mean Platelet Vol. 11.9 fl (6.2-12.0); Monocyte# 0.35 X10^3/uL; Monocyte% 6.5 % (0-10); NRBC Flagged by Analyzer 0 % (0-5); Neutrophil # 2.76 X10^3/uL (2.7-7.7); Neutrophil % 51.2 % (47-70); Platelet Count 163 K/mm3 (150-450); RBC Distribution Width CV 12.4 % (11.6-14.6); RBC Distribution Width SD 42.1 fl (35.1-43.9); Red Blood Count 4.73 M/mm3 (4.2-5.4); White Blood Count 5.4 K/mm3 (4.4-11.0)
[2023-11-03 14:03] LABS: ALB/GLOB Ratio 1.2 RATIO (0.9-2.4); AST(SGOT) 30 U/L (15-37); Alanine Aminotransfer ALT/SGPT 32 U/L (13-56); Albumin, Serum 4.1 g/dL (3.2-5.0); Alkaline Phosphatase 93 U/L (45-117); Anion Gap 8 (5-15); BUN 20 mg/dL (7-18); BUN/Creat Ratio 21.4 RATIO (10-20); Calcium,Total 10.6 mg/dL (8.5-10.1); Chloride 104 mmol/L (98-107); Creatinine, Serum 0.93 mg/dL (0.55-1.02); EST Glomerular Filtration Rate 65 mL/min (>60); Est Glom Filt Rate - Afr Amer 78 mL/min (>60); Globulin 3.4 g/dL (2.2-4.2); Glucose 94 mg/dL (74-106); Potassium 4.4 mmol/L (3.5-5.1); Protein, Total 7.5 g/dL (6.4-8.2); Sodium Level 136 mmol/L (136-145); Thyroid Stim Hormone (TSH) 2.21 uIU/mL (0.358-3.74)
[2023-11-04 14:11] LABS: Lyme Scn Total Ab w/Rflx Negative (Negative)
[2023-11-07 15:08] LABS: Beef 0.79 kU/L (Class II); Chocolate <0.10 kU/L (Class 0); Codfish <0.10 kU/L (Class 0); Corn <0.10 kU/L (Class 0); Egg, Whole <0.10 kU/L (Class 0); Milk (Cow) 0.15 kU/L (Class 0/I); Mussels <0.10 kU/L (Class 0); Peanut <0.10 kU/L (Class 0); Pork 0.68 kU/L (Class II); Salmon <0.10 kU/L (Class 0); Shrimp <0.10 kU/L (Class 0); Soybean <0.10 kU/L (Class 0); Tuna <0.10 kU/L (Class 0); Wheat <0.10 kU/L (Class 0)
== END | disposition home or self-care (01) ==
PROVIDERS: PCP Family Medicine; Referring Provider Family Medicine; Visit Provider Family Medicine
DX: R39.15 Urgency of urination (principal); R07.89 Other chest pain; R06.02 Shortness of breath
CPT/HCPCS: 36415; 80053; 84443; 85025; 86003; 86005; 86618

== ENCOUNTER → 2023-11-12 | Outpatient (CLI) | payer BC, SELFPAY ==
--- NOTE | 2023-11-12 15:26 | STRESSREP ---
Stress Test Report Exercise stress test. 63-year-old lady with a history of chest pain Stress protocol: Resting EKG demonstrates sinus bradycardia with a rate of 49 bpm bpm resting blood pressure is 102/64 mmHg. The patient exercised according to the regular Charles protocol for a total duration of 13 minutes attaining a maximum heart rate of 164 bpm which was 103% of maximum predicted heart rate; the maximum workload was 17.2 metabolic equivalents. At rest there were no ST or T wave changes noted to suggest ischemia and at peak exercise upsloping ST changes only were noted which did not meet the criteria for ischemia. No clinical angina was noted the test was terminated due to the target heart rate being achieved/fatigue. The peak blood pressure was 142/88 mmHg. Rate-pressure product was 20,000. Conclusion: Exercise stress test with no EKG changes for ischemia at a high workload of 17 METS. Excellent functional aerobic capacity. No arrhythmias noted.
== END | disposition home or self-care (01) ==
PROVIDERS: PCP Family Medicine; Referring Provider Family Medicine; Visit Provider Family Medicine
DX: R07.89 Other chest pain (principal)
CPT/HCPCS: 93017

== ENCOUNTER → 2024-05-13 | Outpatient (CLI) | payer BC, SELFPAY ==
--- NOTE | 2024-05-13 09:27 | BI_ITS ---
MAMMOGRAPHY - BILATERAL SCREENING REASON FOR EXAM: Female, 63 years old. Routine annual screening examination. PERTINENT HISTORY: Personal history of breast cancer. Prior right lumpectomy. Sister with breast cancer. Grandmother with breast cancer. TECHNIQUE: Digital bilateral breast shayy (3D mammographic acquisition) in the CC and MLO projections. 2-D mediolateral oblique (MLO) and craniocaudad (CC) views of both breasts were obtained. CAD: Full Field Digital Mammography with Computer Added Detection was performed. COMPARISON: Comparison is made with prior study September 02, 2022 and August 31, 2021. FINDINGS: Breast Composition: The breasts are extremely dense, which lowers the sensitivity of mammography. There are no dominant masses or suspicious calcifications. No other significant abnormalities are identified. There has been no significant change since the prior study. BI/SCRN MAMM (CAD)W/SHAYY BILAT IMPRESSION: Stable bilateral screening mammogram. Yearly follow-up mammogram recommended. (A) ASSESSMENT CATEGORY: BIRADS Category 1: Negative. A letter regarding these results will be sent to the patient by the facility within 30 days. Approximately 10% of breast cancers are not detected by mammography. A normal mammogram should not delay biopsy of a clinically suspicious abnormality. [id number] Electronically Signed: Renard Powell MD at 10:21 EST ,
== END | disposition home or self-care (01) ==
LOC: OPBI 09:25
PROVIDERS: PCP Family Medicine; Referring Provider Family Medicine; Visit Provider Family Medicine
DX: Z12.31 Encounter for screening mammogram for malignant neoplasm of breast (principal); Z85.3 Personal history of malignant neoplasm of breast; Z80.3 Family history of malignant neoplasm of breast
CPT/HCPCS: 77063; 77067

== ENCOUNTER → 2024-11-09 | Outpatient (CLI) | payer BC, SELFPAY ==
--- NOTE | 2024-11-09 15:21 | RAD_ITS ---
PROCEDURE: CHEST PA AND LATERAL 11/09/2024 REASON FOR EXAM: COUGH TECHNIQUE: Frontal and lateral views of the chest. COMPARISON: 05/18/2021. FINDINGS: AICD is in good position. The lungs are emphysematous. There is no demonstrated acute parenchymal abnormality. There is no demonstrated pleural abnormality. Normal heart and pericardium. Normal mediastinum and elias. Normal visualized pulmonary arteries. Normal visualized aortic arch and descending thoracic aorta. Normal visualized thoracic spine. Normal visualized ribs, clavicles, and shoulders. There is no demonstrated abnormality of the visualized soft tissue structures of the upper abdomen. RAD/Chest PA and Lateral IMPRESSION: No radiographic evidence of an acute abnormality. Reading Location: [facility]
== END | disposition home or self-care (01) ==
LOC: MTRAD 15:18
PROVIDERS: PCP Family Medicine; Referring Provider Family Medicine; Visit Provider Family Medicine
DX: R05.3 Chronic cough (principal)
CPT/HCPCS: 71046

== ENCOUNTER → 2025-01-20 | Outpatient (CLI) | payer BC, SELFPAY ==
--- NOTE | 2025-01-20 06:20 | CT_ITS ---
PROCEDURE: CHEST WITH CONTRAST 01/20/2025 REASON FOR EXAM: PERSISTENT COUGH---IV CONTRAST, PT WITH PACEMAKER TECHNIQUE: CHEST WITH CONTRAST Coronal and Sagittal reconstruction series were provided. CONTRAST: Isovue 370 VOLUME: 75 mL One or more dose reduction techniques were used (e.g., Automated exposure control, adjustment of the mA and/or kV according to patient size, use of iterative reconstruction technique). RADIATION DOSE SUMMARY: CTDlvol: 7.6 mGy DLP: 216.87 mGycm COMPARISON: Prior chest radiograph dated November 09, 2024. FINDINGS: Hardware: A left-sided dual-chamber pacemaker device is seen. Lymph nodes: No suspicious lymph nodes are seen. Heart and Vasculature: The heart is not enlarged. No coronary artery calcification is present. Lungs and Airways: The lungs are clear. Pleura: No evidence of pleural effusion. Upper Abdomen: Visualized portions are unremarkable. Bones: Degenerative changes of the thoracic spine. CT/Chest WITH Contrast IMPRESSION: Coronary artery calcification (CAC) is is absent The lungs are clear. Reading Location: [id number]
--- OUTSIDE RECORDS SUMMARY | 2025-01-20 06:39 | XMS RPT_ITS | CCD ---
Author Organization [facility] CliniSyks Care Team Providers Care Laminator Preforms Name Role Phone Provider, External Unavailable [phone] Zo Rosales Primary Care Provider Marianne Jordan Unavailable Unavailable Waldemar Enriquez Unavailable KEELEY SALCEDO Admitting Unavailable OZ ROSALES Consulting Unavailable MATIASKEELEY POLANCO Attending Unavailable MATIASKEELEY POLANCO Primary Care Unavailable PROVIDER, UNKNOWN Consulting Unavailable MATIASKEELEY POLANCO Admitting Unavailable MATIAS, KEELEY Vu Attending Unavailable MATIASKEELEY POLANCO Primary Care Unavailable Dr. Zo Rosales Primary Care Provider Dr. Zo Rosales Referring Provider Dr. Nolan Mayer Attending Provider Caity Shabazz Attending Provider Unavailable Dr. Nolan Mayer Admit Provider Dr. Nolan Mayer Referring Provider Dr. Nolan Mayer Other Provider TJ Carranza Attending Provider TJ Carranza Referring Provider TJ Patel Attending Provider TJ Rea Attending Provider Dr. Zo Rosales Primary Care Provider [phone] Dr. Zo Rosales Referring Provider Dr. Nolan Mayer Attending Provider Caity Shabazz Attending Provider Unavailable Dr. Zo Rosales Primary Care Provider Dr. Zo Rosales Referring Provider [phone] TJ Carranza Attending Provider Dr. Nolan Mayer Attending Provider [phone] Nolan Mayer Referring Provider [phone] Zo Rosales Primary Care Provider Zee Ramirez Attending Provider Unavailable Dr. Zo Rosales Referring Provider [phone] Caity Shabazz Attending Provider Unavailable Dr. Zo Rosales Primary Care Provider Dr. Zo Rosales Referring Provider [phone] Caity Shabazz Attending Provider Unavailable Zo Rosales MD Primary Care Provider JONI SOTO Attending Unavailable ROSALES, ZO A Primary Care Unavailable EMELYVARJONI DYSON Referring Unavailable MACK, ZO A Primary Care Unavailable Dr. Zo Rosales MD Primary Care Provider [phone] Leyla ARZOLA, Dr. Francisco Attending Provider [phone] Zo Rosales MD Attending Provider Dr. Zo Rosales MD Referring Provider Rosales, Zo Primary Care Unavailable Leyla, Nolan Attending Unavailable Rosales, Zo Primary Care Unavailable Leyla, Nolan Attending Unavailable Rosales, Zo Primary Care Unavailable Leyla, Nolan Attending Unavailable Leyla, Cuero Attending Unavailable Rosales, Zo Primary Care Unavailable Rosales, Zo Primary Care Unavailable Rosales, Zo Attending Unavailable Rosales, Zo Referring Unavailable Rosales, Zo Primary Care Unavailable Roof IT TRAINING SPECIALIST, Prieto Catherine Attending Unavailable Rosales, Zo Referring Unavailable Leyla, Cuero Attending Unavailable Rosales, Zo Primary Care Unavailable Rosales, Zo Referring Unavailable Leyla, Cuero Attending Unavailable Rosales, Zo Primary Care Unavailable Rosales, Zo Attending Unavailable Rosales, Zo Referring Unavailable Rosales, Zo Primary Care Unavailable Rosales, Zo Primary Care Unavailable Rosales, Zo Attending Unavailable Rosales, Zo Referring Unavailable Rosales, Zo Attending Unavailable Rosales, Zo Referring Unavailable Rosales, Zo Primary Care Unavailable Allergies Allergy Classification Reported Allergen(s) Allergy Type Date of Onset Reaction(s) Facility (10 sources) Latex; Translations: [LATEX] Allergy to substance 08-13-2005 Swelling [facility] (1 source) Latex Drug allergy (disorder) 04-13-2024 [facility] Repository Medications Current Medications Medication Drug Class(es) Dates Sig (Normalized) Sig (Original) [id number] 200 actuat albuterol 0.09 mg/actuat metered dose inhaler (4 sources) beta2-Adrenergic Agonist Start: 06-22-2014 take 2 puff(s) by inhalation every four hours as needed for wheezing albuterol HFA (VENTOLIN HFA) 90 mcg/actuation inhaler Indications: Sinobronchitis Inhale 2 Puffs as instructed every 4 hours as needed for Wheezing/Shortness of Breath. 1 Inhaler 04/22/2017 Active codeine phosphate 2 mg/ml / guaiFENesin 20 mg/ml oral solution (2 sources) Opioid Agonist Start: 06-22-2014 take 5-10 mL by mouth four times daily as needed for cough codeine-guaiFENesin (ROBITUSSIN AC) 10-100 mg/5 mL syrup Indications: Lower resp. tract infection Take 5-10 mL by mouth four times daily as needed for Cough. May cause drowsiness. 120 mL 0 06/22/2014 Active Thomas (Nk) (4 sources) Start: 02-27-2023 Thomas (Nk) Active February 26, 2023 11:00pm Start: 02-27-2023 Thomas (Nk) A ctive February 27, 2023 12:00am Completed/Discontinued Medications Medication Drug Class(es) Dates Sig (Normalized) Sig (Original) benzonatate 200 mg oral capsule (4 sources) Non-narcotic Antitussive Start: 07-29-2022 End: 02-10-2023 take 1 capsule by mouth three times daily as needed for cough Benzonatate 200 mg capsule Discontinued 200 mg PO THREE TIMES A DAY as needed for cough 20 0 July 29, 2022 1:00am February 10, 2023 11:27am 10 ml lidocaine hydrochloride 10 mg/ml injection (2 sources) Antiarrhythmic, Amide Local Anesthetic Start: 05-24-2024 End: 05-24-2024 lidocaine (PF) 10 mg/mL (1 %) 3 mL injection (XYLOCAINE) Start: 05-24-2024 End: 05-24-2024 3 mL, Injection - FOR ORTHO USE ONLY, ONCE, 1 dose, Starting on Fri05/24/24 at 1046, Until Fri05/24/24 at 1046 meloxicam 15 mg oral tablet (20 sources) Nonsteroidal Anti-inflammatory Drug Start: 08-06-2021 End: 02-15-2022 take 1 tablet by mouth once daily Meloxicam 15 mg tablet Discontinued 15 mg PO DAILY 30 0 September 06, 2021 1:28pm February 15, 2022 11:01am Start: 09-10-2018 End: 10-27-2019 take 1 tablet by mouth once daily Meloxicam (Mobic) 7.5 mg tablet Discontinued 7.5 mg PO DAILY 30 0 September 10, 2018 12:00am October 27, 2019 2:53pm oxyCODONE hydrochloride 5 mg oral tablet (7 sources) Opioid Agonist Start: 05-11-2020 End: 05-16-2020 take 1 tablet by mouth every six hours as needed for pain Oxycodone 5 MG tablet Discontinued 5 mg PO EVERY 6 HOURS NEEDED as needed for Pain Score 6-10 28 5 0 May 11, 2020 May 15, 2020 1:00am May 16, 2020 1:02am Postoperative pain Other acute postprocedural pain 1 ml triamcinolone acetonide 40 mg/ml injection (2 sources) Corticosteroid Start: 05-24-2024 End: 05-24-2024 triamcinolone acetonide 40 mg injection (KeNALog 40) Start: 05-24-2024 End: 05-24-2024 40 mg, Injection - FOR ORTHO USE ONLY, ONCE, 1 dose, Starting on Fri05/24/24 at 1046, Until Fri05/24/24 at 1046 Problems Active Problems Problem Classification Problem Date Documented Date Episodic/Chronic Acute bronchitis (4 sources) Acute bronchitis; Translations: [Acute bronchitis, unspecified] 02-10-2023 Episodic Conditions associated with dizziness or vertigo (14 sources) Dizziness; Translations: [Dizziness and giddiness] 08-27-2021 Episodic Conduction disorders (20 sources) Sinus node dysfunction; Translations: [Other specified heart block] Onset: 05-17-2021 Chronic Comment on above: Dual Leads IMPLANTED DEVICE(S):PPM Generator - Upper Cutter Out: [employer], Model # [id number] , Serial # [id number] Atrial lead - Upper Cutter Out: [employer], Model # 7840 , Serial # [id number] Ventricular lead - Upper Cutter Out: [employer], Model # 7841 , Serial # [id number] 05/17/2021 Essential hypertension (4 sources) Hypertensive disorder; Translations: [Essential (primary) hypertension] 02-27-2023 Chronic Menstrual disorders (2 sources) Menorrhagia; Translations: [Excessive and frequent menstruation with regular cycle] Onset: 03-20-2012 03-20-2012 Chronic Other connective tissue disease (1 source) Myalgia, other site; Translations: [Myalgia and myositis, unspecified] Episodic Other connective tissue disease (1 source) Other specified enthesopathies of right lower limb, excluding foot; Translations: [Other synovitis and tenosynovitis] Episodic Other connective tissue disease (1 source) Impingement syndrome of right shoulder region; Translations: [Impingement syndrome of right shoulder] 05-24-2024 Episodic Other connective tissue disease (1 source) Biceps tendinitis; Translations: [Bicipital tendinitis, right shoulder] 05-24-2024 Episodic Other injuries and conditions due to external causes (12 sources) Hamstring injury; Translations: [Unspecified injury of muscle, fascia and tendon of the posterior muscle group at thigh level, right thigh, initial encounter] 02-10-2023 Episodic Other lower respiratory disease (2 sources) Chronic cough; Translations: [Chronic cough] Onset: 11-16-2024 Episodic Other non-traumatic joint disorders (7 sources) Hip pain; Translations: [Pain in left hip] 08-27-2021 Episodic Residual codes; unclassified (1 source) Family history of breast cancer; Translations: [Family history of breast cancer] Episodic Residual codes; unclassified (8 sources) Pain; Translations: [Pain, unspecified] 08-27-2021 Episodic Residual codes; unclassified (7 sources) Kidney donor; Translations: [Donor of kidney for transplant] 05-15-2021 Episodic Residual codes; unclassified (1 source) Pain, unspecified; Translations: [Pain] Onset: 05-24-2024 Episodic Sprains and strains (20 sources) Strain of hamstring muscle; Translations: [Strain of muscle, fascia and tendon of the posterior muscle group at thigh level, left thigh, initial encounter] Episodic Superficial injury; contusion (6 sources) Abrasion of left knee; Translations: [Abrasion, left knee, initial encounter] Episodic Syncope (8 sources) Near syncope; Translations: [Syncope and collapse] Episodic Past or Other Problems Problem Classification Problem Date Documented Date Episodic/Chronic Nonmalignant breast conditions (2 sources) Lump in right breast; Translations: [Unspecified lump in the right breast, unspecified quadrant] Onset: 03-20-2012 03-20-2012 Episodic Other screening for suspected conditions (not mental disorders or infectious disease) (17 sources) Ambulatory ECG abnormal; Translations: [Abnormal electrocardiogram [ECG] [EKG]] Onset: 07-17-2007 08-27-2021 Episodic Residual codes; unclassified (1 source) Family history of ischemic heart disease and other diseases of the circulatory system; Translations: [Family history of ischemic heart disease and other diseases of the circulatory system] Onset: 09-28-2024 Episodic Unclassified (4 sources) Abrasion, left knee, initial encounter 08-27-2021 Results Test Name Value Interpretation Reference Range Facility Chest PA and Lateralon 11-09 Chest PA and Lateral [facility] Imaging Services [address] [place] [id number] Chest PA and Lateral MR#: [id number] Acct: [id number] Name: IGNACIO ROSALES Rep #: [id number] : 1960 F 64 From: Gildardo ward MD PCP: Dr. Zo Rosales MD Status: [facility] CLI Study: Chest PA and Lateral Date of Exam: 11/09/24 Exam# [id number] Ordering Dr: Zo Rosales MD PROCEDURE: CHEST PA AND LATERAL 11/09/2024 REASON FOR EXAM: COUGH TECHNIQUE: Frontal and lateral views of the chest. COMPARISON: 05/18/2021. FINDINGS: AICD is in good position. The lungs are emphysematous. There is no demonstrated acute parenchymal abnormality. There is no demonstrated pleural abnormality. Normal heart and pericardium. Normal mediastinum and elias. Normal visualized pulmonary arteries. Normal visualized aortic arch and descending thoracic aorta. Normal visualized thoracic spine. Normal visualized ribs, clavicles, and shoulders. There is no demonstrated abnormality of the visualized soft tissue structures of the upper abdomen. RAD/Chest PA and Lateral IMPRESSION: No radiographic evidence of an acute abnormality. Reading [facility] CC: Dr. Zo Rosales MD Clinical Research Associate: Signed [facility] CNOVon 05-24-2024 CNOV Office Visit (ORTHMN ) IGNACIO ROSALES ([id number]) 1960 F Date Time Provider Department 05/24/24 10:20 AM JONI SOTO ORTHMN During your visit today, we recorded the following information about you: Joni Soto, BANGC 05/24/2024 11:03 AM Signed DEPARTMENT OF ORTHOPAEDICS CHIEF COMPLAINT: Ignacio Rosales is a 63 year old female who presents today for new evaluation of right shoulder pain. HISTORY OF PRESENT ILLNESS: This is a 63-year-old female who is right-hand dominant. He is retired. She has had no injury. She has been complaining on and off discomfort within her right shoulder for the past 6 months. The patient does swim a lot. She does not do a lot of weight lifting for strength. She utilizes ice for treatment if need be. She presents today for an exam, along with x-rays of the right shoulder. PAIN EVALUATION 05/24/2024 0955 Pain Level: 2 Pain Location: Shoulder-Right Description: Aching;Throbbing Duration Amount of Time: 6 Duration Units: Months Frequency: Continuous Intervention/Comfort measure: Cold REVIEW OF SYMPTOMS: Constitutional: patient denies any recent fever or significant change in weight Gastrointestinal: patient denies any current abdominal discomfort Musculoskeletal: as noted in the HPI Neurologic: as noted in the HPI SOCIAL HISTORY: Tobacco Use: Never ALLERGIES: ALLERGIES Allergen Reactions Latex Swelling latex the dust in the gloves PAST MEDICAL HISTORY: PAST MEDICAL HISTORY Diagnosis Date Abnormal mammogram, unspecified 06/08/07 right breast Abnormal Pap smear Excessive menstruation Mammographic microcalcification 06/08/07 PONV (postoperative nausea and vomiting) PHYSICAL EXAMINATION: Patient's vitals and nursing notes were reviewed. Vitals: LMP 04/02/2012 Skin: Skin color, texture, turgor normal, no suspicious rashes or lesions noted Psychiatric: mood and affect are appropriate, patient is oriented to time, place and person General Appearance: Well appearing, alert, in no acute distress, well-hydrated, and well nourished Cardiovascular: radial pulses normal, no signs of upper extremity edema Respiratory: no respiratory distress, no audible wheezing, no labored breathing, symmetric thoracic excursion Neurologic: sensation is grossly intact Musculoskeletal Examination: Examination of the right shoulder: Inspection: Bilateral rounded shoulders. Shoulder Range of Motion: Flexion: normal at 150-180 degrees Abduction: normal at 125-150 degrees External rotation: Normal at 80-90 degrees Apley scratch test (internal rotation): Right arm: patient able to reach to T11 Left arm: patient able to reach to T11 SC JOINT: no tenderness to palpation AC JOINT: no tenderness to palpation Scapula exam: normal examination of scapula with no dyskinetic motion noted Priscilla Test / Empty Can Test (supraspinatus): normal examination with no pain or weakness elicited Resisted lateral rotation test (infraspinatus): normal examination with no pain or weakness elicited Speed's test: pain elicited at the bicepital groove Vidal test: pain elicited at the anterior shoulder Neer test: pain elicited at the anterior shoulder IMAGING: Final results and radiologist's interpretation, available in the [facility] health record. Images were reviewed with the patient/family members in the office today. My personal interpretation of the performed imaging is minimal arthritic change noted over the AC joint. Patient does have pacemaker noted. CLINICAL IMPRESSION / ASSESSMENT: (M75.41) Impingement syndrome of right shoulder (primary encounter diagnosis) (M75.21) Bicipital tendinitis of right shoulder RECOMMENDATION / PLAN: We did discuss treatment, this would consist of conservative treatment, consisting of physical therapy, she was given information for this. The patient did opt for injection/procedure noted below which she tolerated well. Patient was given postinjection instructions. The patient was advised to follow-up with me as needed. Verbal health education was given to patient. Patient verbalizes understanding and agrees with the treatment plan as detailed above. I spent a total of 30 minutes on the date of the service which included preparing to see the patient, [id number] patient care, completing clinical documentation, obtaining and/or reviewing separately obtained history, performing a medically appropriate examination, counseling and educating the patient/family/caregiv er, ordering medications, tests, or procedures, independently interpreting results (not separately reported), and communicating results to the patient/family/caregiv er. Joni (TYRELL Soto MA, PA-C Orthopaedic Surgery [facility] [place] Note: This dictation was created using voice recognition software. === (more content not included)... [facility] Large Joint Arthro/Inj: R stokes bacromial bursaon 05-24-2024 Joni Soto PA-C 05/24/2024 11:03 AM Large Joint Arthro/Inj: R subacromial bursa Informed Consent Consent Obtained: Verbal [place] Protocol A moment to CARE was completed. SIGN IN Personnel directly involved with the procedure wore the appropriate PPE. Special Equipment: N/A Patient/Surrogate Stated/Verified: Patient name, Date of , Relevant allergies and Intended procedure TIME OUT Intended patient and procedure match the source document(s). Consent documented and matches the intended procedure. Relevant labs, photos, and/or imaging studies have been reviewed. Correct side/site marked and visible. Medications required for procedure verified. No fire risk assessment and interventions applicable. No implant(s) inserted. 05/24/2024 10:46 AM The procedure site was prepped in the usual sterile fashion. Site: R subacromial bursa Medications: 40 mg triamcinolone acetonide 40 mg/mL Anesthetics: 3 mL lidocaine (PF) 10 mg/mL (1 %) Outcome: Tolerated well, no immediate complications Post-injection instructions were reviewed with the patient and the patient voiced understanding of these instructions. SIGN OUT No specimen collected. All instruments, equipment, possible retained foreign bodies accounted for. Post-procedure follow-up management communicated and Plan of Care Visit completed when applicable Right shoulder, subacromial injection, posterior approach. [facility] XR SHLDR >/=3V AP/CAMMY AP/OTH R RTon 05-24-2024 XR SHLDR >/=3V AP/CAMMY AP/OTHR RT * * *Final Report* * * DATE OF EXAM: May 24 2024 9:27AM AOX 5253 - XR SHLDR >/=3V AP/CAMMY AP/OTHR RT / PROCEDURE REASON: Pain * * * * Physician Interpretation * * * * X-RAYS RIGHT SHOULDER HISTORY: pain/denies specific injury. Pain TECHNIQUE: 3 views of the right shoulder. COMPARISON: None RESULT: No fracture or dislocation is identified. The acromiohumeral interval and glenohumeral joint spaces are maintained. Mild degenerative change acromioclavicular joint. IMPRESSION: Mild degenerative change of acromioclavicular joint Clinical Research Associate: RIANA Transcribe Date/Time: May 24 2024 12:21P Dictated by : DELPHINE JUAREZ MD This examination was interpreted and the report reviewed and electronically signed by: DELPHINE JUAREZ MD on May 24 2024 12:23PM EST [id number] [facility] XR Shoulder - right 3 Viewso n 05-24-2024 IMPRESSION: Mild degenerative change of acromioclavicular joint Clinical Research Associate: [facility] Transcribe Date/Time: May 24 2024 12:21P Dictated by : DELPHINE JUAREZ MD This examination was interpreted and the report reviewed and electronically signed by: DELPHINE JUAREZ MD on May 24 2024 12:23PM EST DIVISION OF RADIOLOGY * * *Final Report* * * DATE OF EXAM: May 24 2024 9:27AM AOX 5253 - XR SHLDR >/=3V AP/CAMMY AP/OTHR RT / PROCEDURE REASON: Pain * * * * Physician Interpretation * * * * X-RAYS RIGHT SHOULDER HISTORY: pain/denies specific injury. Pain TECHNIQUE: 3 views of the right shoulder. COMPARISON: None RESULT: No fracture or dislocation is identified. The acromiohumeral interval and glenohumeral joint spaces are maintained. Mild degenerative change acromioclavicular joint. DIVISION OF RADIOLOGY Provider, [facility] Marilee freeman [place] - 05/24/2024 * * *Final Report* * * DATE OF EXAM: May 24 2024 9:27AM AOX 5253 - XR SHLDR >/=3V AP/CAMMY AP/OTHR RT / PROCEDURE REASON: Pain * * * * Physician Interpretation * * * * X-RAYS RIGHT SHOULDER HISTORY: pain/denies specific injury. Pain TECHNIQUE: 3 views of the right shoulder. COMPARISON: None RESULT: No fracture or dislocation is identified. The acromiohumeral interval and glenohumeral joint spaces are maintained. Mild degenerative change acromioclavicular joint. IMPRESSION IMPRESSION: Mild degenerative change of acromioclavicular joint Clinical Research Associate: [facility] Transcribe Date/Time: May 24 2024 12:21P Dictated by : DELPHINE JUAREZ MD This examination was interpreted and the report reviewed and electronically signed by: DELPHINE JUAREZ MD on May 24 2024 12:23PM EST [facility] Radiology Study observation (narrative) [facility] XR Shoulder - right 3 ViewsO rdered By: [facility] Provider on 05-24-2024 [facility] SCRN MAMM (CAD)W/SHAYY BILATo n 05-13-2024 SCRN MAMM (CAD)W/SHAYY BILAT [facility] Imaging Services [address] [place] [id number] SCRN MAMM (CAD)W/SHAYY BILAT MR#: [id number] Acct: [id number] Name: IGNACIO ROSALES Rep #: [id number] : 1960 F 63 From: Renard montaño MD PCP: Dr. Zo Rosales MD Status: [facility] Study: SCRN MAMM (CAD)W/SHAYY BILAT Date of Exam: 05/02 07/26 Exam# [id number] Ordering Dr: Zo Rosales MD [id number] MAMMOGRAPHY - BILATERAL SCREENING REASON FOR EXAM: Female, 63 years old. Routine annual screening examination. PERTINENT HISTORY: Personal history of breast cancer. Prior right lumpectomy. Sister with breast cancer. Grandmother with breast cancer. TECHNIQUE: Digital bilateral breast shayy (3D mammographic acquisition) in the CC and MLO projections. 2-D mediolateral oblique (MLO) and craniocaudad (CC) views of both breasts were obtained. CAD: Full Field Digital Mammography with Computer Added Detection was performed. COMPARISON: Comparison is made with prior study September 02, 2022 and August 31, 2021. FINDINGS: Breast Composition: The breasts are extremely dense, which lowers the sensitivity of mammography. There are no dominant masses or suspicious calcifications. No other significant abnormalities are identified. There has been no significant change since the prior study. BI/SCRN MAMM (CAD)W/SHAYY BILAT IMPRESSION: Stable bilateral screening mammogram. Yearly follow-up mammogram recommended. (A) ASSESSMENT CATEGORY: BIRADS Category 1: Negative. A letter regarding these results will be sent to the patient by the facility within 30 days. Approximately 10% of breast cancers are not detected by mammography. A normal mammogram should not delay biopsy of a clinically suspicious abnormality. [id number] Electronically Signed: Renard Powell MD at 10:21 EST Reading Location ID and State: [facility] / [place] , Service support , CC: Dr. Zo Rosales MD Clinical Research Associate: Signed [facility] Cardiology Visit Reporton Cardiology Visit Report [facility] [address] [place] [address]. [address] [place] [address] OFFICE VISIT Date of Service: 04/13/24 MR#: [id number] Acct: [id number] Name: IGNACIO ROSALES Rep #: [id number] : 1960 Provider: BISMARK montero Age/Sex: 63/F [place] [facility] [place] Status: Signed HPI HPI History of Present Illness Details: Pleasant 63-year-old lady rather active with no previous cardiac history who established with us for concerns over having periods of dizziness which have been going back a few months. She had an event monitor placed which demonstrated sinus pauses of up to 9.8 seconds. She eventually underwent a permanent pacemaker implantation. She denies chest, arm, jaw, or neck discomfort. She denies palpitations. She denies bilateral lower extremity edema. She denies claudication. She denies shortness of breath with activity, shortness of breath at rest, orthopnea, or PND. She denies chronic cough. She denies significant, sudden weight gain. She denies lightheadedness, dizziness, near-syncope, or syncope. She denies blood in urine, blood in stool, or epistaxis. He denies fever with chills. She denies myalgia. She denies fatigue. Her exercise level has remained stable. Intake Vital Signs 02/27/23 08:56 04/13/24 10:30 Height 5 ft 2 in 5 ft 2 in Weight: 107 lb BMI 19.5 BP 133/86 H Blood Pressure Location Lt brachial Position Sitting Respiration 16 Pulse 50 L Pulse Source NIBP Intake Visit Reasons: 1 Y FU/GIOVANI @ 11 Short Order Fry Cook Required: No Accompanied by: None Is patient in pain?: No Allergies latex Allergy (Verified 04/13/24 10:32) Anaphylaxis Medications ???Medication ???Instructions ???Recorded ???Confirmed ???Type NK 02/27/23 04/13/24 History Ejection fraction %: 60 Have you fallen in the past year?: No PFSH Medical History Acute bronchitis, unspecified Right proximal hamstring tendon rupture Right hamstring injury Abrasion, left knee, initial encounter Strain of right hip Left hip pain Tick bite (2016) Kidney donor Sinus pause Screen for colon cancer Surgical History Hx of section History of permanent cardiac pacemaker placement (05/17/21) Dislocation of clavicle, left, closed (1994) History of hysterectomy (2019) History of nephrectomy (2006) Family History Grandmother Breast cancer maternal Cancer Father CAD (coronary artery disease) Cancer bladder Grandfather Cancer paternal Sister CAD (coronary artery disease) Social History Smoking Status: Never smoker alcohol intake: current alcohol intake frequency: a few times a week Alcohol type: beer and wine substance use type: does not use caffeine: Yes Type: coffee Number of servings: 2 ROS Const Const: Negative for fatigue or weakness Eyes Eyes: Negative for change in vision ENT ENT: Negative for dizziness or balance problems Cardio Chest Pain: No Palpitations: No Edema: None Muscle aches with walking: None Resp Respiratory: Negative for SOB with activity or SOB at rest GI GI: Negative nausea or heartburn : Negative for hematuria Musc Musc: Negative for balance problems Skin Skin: Negative non-healing lesions, rash or unusual bruising Neuro Neuro: Negative for dizziness, lightheadedness, near syncope, syncope or weakness Clint Hematologic/Lymphatic: Negative for easy bleeding or easy bruising Endo Endo: Negative for fatigue Psych Psych: Negative for anxiety or depression Allergy Allergy/Immunology: Negative for hives and Negative for rash Cardiology Exam Const Appearance: cooperative, healthy appearing, no acute distress, well developed and well groomed Nutritional Appearance: average body habitus and well nourished Orientation: alert, awake and oriented x3 Head Head: normal to inspection, normocephalic and atraumatic Ears: hearing grossly normal bilaterally and external ears normal Nose: external nose normal, nares normal, nasal mucous membranes and turbinates normal, septum normal and no nasal discharge Face and Sinus: face symmetric Mouth: oral mucosae normal, tongue normal, oropharynx normal and moist mucous membranes Teeth and gingiva: dentition normal Throat: posterior oropharynx normal, tonsils normal and uvula midline Eyes General: appearance normal, both eyes and all related structures Eyelids: eyelids normal Conjunctivae: conjunctivae normal Pupils: PERRL, normal by confrontation and accommodation normal EOM: EOM intact bilaterally Neck Neck: normal visual inspection, trachea midline and no JVD JVD: +5 Carotids: normal carotid upstroke and bounding pulses Chest (more content not included)... Normal [facility] Pacemaker Checkon 04-13-2024 Pacemaker Check [facility] [address] [place] [address] Pacemaker Check Date of Service: 04/13/241533 MR#: [id number] Acct: [id number] Name: IGNACIO ROSALES Rep #: [id number] : 1960 From: Caity Shabazz Age/Sex: 63/F Location[place] [facility] [place] Status: Signed Billing Codes PM Device Codes: 34617 PM Dev Prog Eval, Dual Assessment and Plan Assessment and Plan (1) History of permanent cardiac pacemaker placement: Status: Acute Comment: Dual Leads IMPLANTED DEVICE(S): PPM Generator - Upper Cutter Out: [employer], Model # [id number] , Serial # [id number] PPM Atrial lead - Upper Cutter Out: [employer], Model # 7840 , Serial # [id number] PPM Ventricular lead - Upper Cutter Out: [employer], Model # 7841 , Serial # [id number] 05/17/2021 (2) Sinus arrest: Status: Chronic (3) Sinus pause: Status: Chronic 04/13/246 Date Caity Mejiamatosmany Signature: Date (if applicable) CC: Normal [facility] Absolute lymphocyte countOrd ered By: Zo Rosales on 06-20-2023 Lymphocytes Auto (Unsp spec) [#/Vol] 2.31 10*3/uL 0.83-4.51 [facility] Automated lymphocyte count a s percentage of total leukocytesOrdered By: Zo Rosales on 06-20-2023 Lymphocytes/100 WBC Auto (Unsp spec) 28.1 % 19-41 [facility] Basophil percentageOrdered B y: Zo Rosales on 06-20-2023 Basophils/100 WBC (Bld) 0.7 % 0-1 [facility] Bilirubin [Mass/Vol] 1.00 mg/dL 0.20-1.00 [facility] Comment on above: For patients on eltr ombopag therapy, use of Dimension Bixby TBIL is not recommended. Chloride [Moles/Vol] 107 mmol/L 98-107 [facility] Eosinophils/100 WBC (Bld) 0.7 % 0-5 [facility] Glucose [Mass/Vol] 112 mg/dL 74-106 [facility] Comment on above: Fasting Glucose resu lt from 100 to 125 mg/dL suggests IMPAIRED HOMEOSTASIS per A.D.A. criteria. Hemoglobin (Bld) [Mass/Vol] 13.1 g/dL 12.0-15.0 [facility] Monocytes/100 WBC (Bld) 5.6 % 0-10 [facility] Neutrophils (Bld) [#/Vol] 5.3 10*3/uL 2.0-7.7 [facility] Neutrophils/100 WBC (Bld) 64.8 % 47-70 [facility] Potassium [Moles/Vol] 4.0 mmol/L 3.5-5.1 [facility] Protein [Mass/Vol] 6.7 g/dL 6.4-8.2 [facility] Sodium [Moles/Vol] 140 mmol/L 136-145 [facility] WBC (Bld) [#/Vol] 8.2 10*3/uL 4.4-11.0 [facility] Determination of erythrocyte mean corpuscular volume (MCV)Ordered By: Zo Rosales on 06-20-2023 MCV (RBC) [Entitic vol] 93.1 fL 81-99 [facility] Erythrocyte distribution wid th ratioOrdered By: Zo Rosales on 06-20-2023 Erythrocyte distribution width (RBC) [Ratio] 12.1 % 11.6-14.6 [facility] Erythrocyte distribution wid th standard deviationOrdered By: Zo Rosales on 06-20-2023 Erythrocyte distribution width (RBC) [Entitic vol] 41.3 fL 35.1-43.9 [facility] Hematocrit Auto (Bld) [Volum e fraction]Ordered By: Zo Rosales on 06-20-2023 Hematocrit (Bld) [Volume fraction] 38.9 % 37-47 [facility] Immature granulocytes/100 WB C Auto (Bld)Ordered By: Zo Rosales on 06-20-2023 Immature granulocytes/100 WBC (Bld) 0.100 % 0.0-0.9 [facility] Comment on above: IG% - Immature Granu locytes (promyelocytes, myelocytes and metamyelocytes) > 1% indicates that a LEFT SHIFT is Present. Laboratory - Chemistry and C hemistry - challengeOrdered By: Zo Rosales on 06-20-2023 Albumin/Globulin [Mass ratio] 1.2 {ratio} 0.9-2.4 [facility] ALP [Catalytic activity/Vol] 67 U/L 45-117 [facility] ALT [Catalytic activity/Vol] 25 U/L 13-56 [facility] CO2 [Moles/Vol] 28.0 mmol/L 21.0-32.0 [facility] Cobalamin (Vitamin B12) [Mass/Vol] 467 pg/mL 211-911 [facility] Globulin (S) [Mass/Vol] 3.0 g/dL 2.2-4.2 [facility] Urea nitrogen/Creatinine [Mass ratio] 25.7 mg/mg 10-20 [facility] Laboratory - Hematology and Cell countsOrdered By: Zo Rosales on 06-20-2023 MCH (RBC) [Entitic mass] 31.3 pg 27.0-32.0 [facility] MCHC (RBC) [Mass/Vol] 33.7 g/dL 32-36 [facility] Nucleated RBC/100 WBC (Bld) [Ratio] 0 % 0-5 [facility] Platelets (Bld) [#/Vol] 162 10*3/uL 150-450 [facility] No Panel InformationOrdered By: Zo Rosales on 06-20-2023 Estimated GFR (MDRD) Amer 86 mL/min >60 [facility] Comment on above: GFR Calc Estimated GFR (MDRD) Non-Af Amer 71 mL/min >60 [facility] Comment on above: Non- GFR Calc Platelet mean volume Mulugeta-Ec ker (Bld) [Entitic vol]Ordered By: Zo Rosales on 06-20-2023 Platelet mean volume (Bld) [Entitic vol] 11.3 fL 6.2-12.0 [facility] RBC Auto (Bld) [#/Vol]Ordere d By: Zo Rosales on 06-20-2023 RBC (Bld) [#/Vol] 4.18 10*6/uL 4.2-5.4 [facility] Serum or plasma calcium vj urement (mass/volume)Ordered By: Zo Rosales on 06-20-2023 Calcium [Mass/Vol] 9.7 mg/dL 8.5-10.1 [facility] Serum or plasma creatinine m easurement (mass/volume)Ordered By: Zo Rosales on 06-20-2023 Creatinine [Mass/Vol] 0.86 mg/dL 0.55-1.02 [facility] Comment on above: The validity of the calculated GFR & GFRAA in patients over 70 years has not been determined. Clinical correlation is essential. Serum or plasma thyroid stim ulating hormone (TSH) measurement (units/volume)Ordered By: Zo Rosales on 06-20-2023 TSH Qn 1.64 uIU/mL 0.358-3.74 [facility] Serum or plasma urea nitroge n measurement (mass/volume)Ordered By: Zo Rosales on 06-20-2023 Urea nitrogen [Mass/Vol] 22 mg/dL 7-18 [facility] Thin prep Papanicolaou smear with manual screeningOrdered By: Zo Rosales on 06-20-2023 Thin prep Papanicolaou smear with manual screening 3.7 g/dL 3.2-5.0 [facility] Thin prep Papanicolaou smear with manual screening 24 U/L 15-37 [facility] Thin prep Papanicolaou smear with manual screening 5 5-15 [facility] Thin prep Papanicolaou smear with manual screening Negative Negative [facility] Comment on above: Lyme antibodies not detected. Reflex testing is notindicated.No laboratory evidence of infection with B. burgdorferi(Lyme disease). Negative results may occur in patientsrecently infected (less than or equal to 14 days) with B.burgdorferi. If recent infection is suspected, repeattesting on a new sample collected in 7 to 14 days isrecommended.Performed at: [facility] [address] [id number] Director: Erasmo Wayne PhD, Phone: [phone] Basophil percentageon 2020 Basophil percentage 0 SEEN /hpf [facility] Work Phone: Chloride [Moles/Vol] 106 mmol/L 98-107 [facility] Work Phone: Glucose [Mass/Vol] 87 mg/dL 74-106 [facility] Work Phone: Comment on above: Please note revised GLUCOSE reference range effective 2017. Potassium [Moles/Vol] 4.0 mmol/L 3.5-5.1 [facility] Work Phone: Sodium [Moles/Vol] 139 mmol/L 136-145 [facility] Work Phone: WBC (Bld) [#/Vol] 8.5 10*3/uL 4.4-11.0 [facility] Work Phone: Bilirubin Test strip Ql (U)o n 05-16-2021 Bilirubin Ql (U) Negative Negative [facility] Work Phone: Blood erythrocytes count (nu mber/volume)on 05-16-2021 RBC (Bld) [#/Vol] 4.59 10*6/uL 4.2-5.4 [facility] Work Phone: Blood hemoglobin measurement (mass/volume)on 05-16-2021 Hemoglobin (Bld) [Mass/Vol] 14.2 g/dL 12.0-15.0 [facility] Work Phone: Blood platelet mean volumeon 05-16-2021 Platelet mean volume (Bld) [Entitic vol] 11.1 fL 6.2-12.0 [facility] Work Phone: Determination of erythrocyte mean corpuscular volume (MCV)on 05-16-2021 MCV (RBC) [Entitic vol] 92.4 fL 81-99 [facility] Work Phone: Hematocrit Auto (Bld) [Volum e fraction]on 05-16-2021 Hematocrit (Bld) [Volume fraction] 42.4 % 37-47 [facility] Work Phone: Ketones Test strip Ql (U)on 05-16-2021 Ketones Ql (U) Negative Negative [facility] Work Phone: Laboratory - Chemistry and C hemistry - challengeon 05-16-2021 CO2 [Moles/Vol] 30.0 mmol/L 21.0-32.0 [facility] Work Phone: Urea nitrogen/Creatinine [Mass ratio] 20.1 mg/mg 10-20 [facility] Work Phone: Laboratory - Hematology and Cell countson 05-16-2021 Erythrocyte distribution width (RBC) [Entitic vol] 40.2 fL 35.1-43.9 [facility] Work Phone: Erythrocyte distribution width (RBC) [Ratio] 11.8 % 11.6-14.6 [facility] Work Phone: MCH (RBC) [Entitic mass] 30.9 pg 27.0-32.0 [facility] Work Phone: MCHC Auto (RBC) [Mass/Vol]on 05-16-2021 MCHC (RBC) [Mass/Vol] 33.5 g/dL 32-36 [facility] Work Phone: Mucus LM Ql (Urine sed)on Mucus Ql (Urine sed) 0 SEEN /hpf [facility] Work Phone: Nitrite Test strip Ql (U)on 05-16-2021 Nitrite Ql (U) Negative Negative [facility] Work Phone: No Panel Informationon 05-16 Estimated Creatinine Clearance Calc 50.79 ml/min [facility] Work Phone: Estimated GFR (MDRD) Amer 83 mL/min >60 [facility] Work Phone: Comment on above: GFR Calc Estimated GFR (MDRD) Non-Af Amer 68 mL/min >60 [facility] Work Phone: Comment on above: Non- GFR Calc Platelets bldon 05-16-2021 Platelets (Bld) [#/Vol] 255 10*3/uL 150-450 [facility] Work Phone: Protein Test strip Ql (U)on 05-16-2021 Protein Ql (U) Negative Negative [facility] Work Phone: Serum or plasma calcium vj urement (mass/volume)on 05-16-2021 Calcium [Mass/Vol] 10.3 mg/dL 8.5-10.1 [facility] Work Phone: Serum or plasma creatinine m easurement (mass/volume)on 05-16-2021 Creatinine [Mass/Vol] 0.90 mg/dL 0.55-1.02 [facility] Work Phone: Comment on above: The validity of the calculated GFR & GFRAA in patients over 70 years has not been determined. Clinical correlation is essential. Serum or plasma urea nitroge n measurement (mass/volume)on 05-16-2021 Urea nitrogen [Mass/Vol] 18 mg/dL 7-18 [facility] Work Phone: Squamous epithelial cells de tection in urine sediment by light microscopyon 05-16-2021 Epithelial cells.squamous LM Ql (Urine sed) 0 SEEN /hpf [facility] Work Phone: Thin prep Papanicolaou smear with manual screeningon 05-16-2021 Thin prep Papanicolaou smear with manual screening 3 10-14 [facility] Work Phone: Urine blood detectionon 05-02 RBC Ql (U) Negative Negative [facility] Work Phone: RBC Ql (U) 0 SEEN /hpf [facility] Work Phone: Urine clarityon 05-16-2021 Clarity (U) Clear Clear [facility] Work Phone: Urine color determinationon 05-16-2021 Color (U) Yellow Yellow [facility] Work Phone: Urine glucose detectionon Glucose Ql (U) Normal mg/dl Normal [facility] Work Phone: Urine leukocyte esterase det ection by dipstickon 05-16-2021 Leukocyte esterase Test strip Ql (U) 25 /ul Negative [facility] Work Phone: Urine pHon 05-16-2021 pH (U) 7.0 [pH] [facility] Work Phone: Urine sediment bacteria coun t by microscopy (number/high power field)on 05-16-2021 Bacteria LM.HPF (Urine sed) [#/Area] 0 /[HPF] None Seen [facility] Work Phone: Urine specific gravity measu rementon 05-16-2021 Specific gravity (U) [Rel density] 1.010 [facility] Work Phone: Urobilinogen Auto test strip Ql (U)on 05-16-2021 Urobilinogen Ql (U) Normal mg/dl Normal [facility] Work Phone: Vital Signs Date Time Vital Sign Value Performing Clinician Faci lity 02-27-2023 08:56-0400 Body height 157.[address] Zo Rosales Work Phone: [facility] 02-27-2023 08:56-0400 Body mass index (BMI) [Ratio] 21 kg/m2 Dr. Zo Rosales Work Phone: [facility] 02-27-2023 08:56-0400 Body weight 52.[address] Zo Rosales Work Phone: [facility] 02-27-2023 08:56-0400 Diastolic blood pressure 94 mm[Hg] Dr. Zo Rosales Work Phone: [facility] 02-27-2023 08:56-0400 Heart rate 44 /min Dr. Zo Rosales Work Phone: [facility] 02-27-2023 08:56-0400 Respiratory rate 16 /min Dr. Zo Rosales Work Phone: [facility] 02-27-2023 08:56-0400 Systolic blood pressure 168 mm[Hg] Dr. Zo Rosales Work Phone: [facility] 09-19-2021 11:26-0400 Diastolic blood pressure 82 mm[Hg] Dr. Zo Rosales Work Phone: [facility] Work Phone: 09-19-2021 11:26-0400 Heart rate 65 /min Dr. Zo Rosales Work Phone: [facility] Work Phone: 09-19-2021 11:26-0400 SaO2% (BldA) [Mass fraction] 97 % Dr. Zo Rosales Work Phone: [facility] Work Phone: 09-19-2021 11:26-0400 Systolic blood pressure 133 mm[Hg] Dr. Zo Rosales Work Phone: [facility] Work Phone: 09-19-2021 10:55-0400 Respiratory rate 16 /min Dr. Zo Rosales Work Phone: [facility] Work Phone: 08-29-2021 13:02-0400 Body height 157.[address] Zo Rosales Work Phone: [facility] Work Phone: 08-29-2021 13:02-0400 Body mass index (BMI) [Ratio] 20.8 kg/m2 Dr. Zo Rosales Work Phone: [facility] Work Phone: 08-29-2021 13:02-0400 Body weight 51.[address] Zo Rosales Work Phone: [facility] Work Phone: 08-29-2021 13:02-0400 Diastolic blood pressure 84 mm[Hg] Dr. Zo Rosales Work Phone: [facility] Work Phone: 08-29-2021 13:02-0400 Heart rate 55 /min Dr. Zo Rosales Work Phone: [facility] Work Phone: 08-29-2021 13:02-0400 Respiratory rate 18 /min Dr. Zo Rosales Work Phone: [facility] Work Phone: 08-29-2021 13:02-0400 SaO2% (BldA) [Mass fraction] 96 % Dr. Zo Rosales Work Phone: [facility] Work Phone: 08-29-2021 13:02-0400 Systolic blood pressure 134 mm[Hg] Dr. Zo Rosales Work Phone: [facility] Work Phone: 08-29-2021 13:02-0400 Body height 157.[address] Zo Rosales Work Phone: [facility] Work Phone: 08-29-2021 13:02-0400 Body mass index (BMI) [Ratio] 20.8 kg/m2 Dr. Zo Rosales Work Phone: [facility] Work Phone: 08-29-2021 13:02-0400 Body weight 51.[address] Zo Rosales Work Phone: [facility] Work Phone: 08-29-2021 13:02-0400 Diastolic blood pressure 84 mm[Hg] Dr. Zo Rosales Work Phone: [facility] Work Phone: 08-29-2021 13:02-0400 Heart rate 55 /min Dr. Zo Rosales Work Phone: [facility] Work Phone: 08-29-2021 13:02-0400 Respiratory rate 18 /min Dr. Zo Rosales Work Phone: [facility] Work Phone: 08-29-2021 13:02-0400 SaO2% (BldA) [Mass fraction] 96 % Dr. Zo Rosales Work Phone: [facility] Work Phone: 08-29-2021 13:02-0400 Systolic blood pressure 134 mm[Hg] Dr. Zo Rosales Work Phone: [facility] Work Phone: 08-02-2021 09:18-0500 Body mass index (BMI) [Ratio] 20.8 kg/m2 Dr. Zo Rosales Work Phone: [facility] Work Phone: 08-02-2021 09:18-0500 Body temperature 98.6 [degF] Dr. Zo Rosales Work Phone: [facility] Work Phone: 08-02-2021 09:18-0500 Body weight 51.[address] Zo Rosales Work Phone: [facility] Work Phone: 08-02-2021 09:18-0500 Diastolic blood pressure 70 mm[Hg] Dr. Zo Rosales Work Phone: [facility] Work Phone: 08-02-2021 09:18-0500 Heart rate 68 /min Dr. Zo Rosales Work Phone: [facility] Work Phone: 08-02-2021 09:18-0500 Respiratory rate 16 /min Dr. Zo Rosales Work Phone: [facility] Work Phone: 08-02-2021 09:18-0500 SaO2% (BldA) [Mass fraction] 99 % Dr. Zo Rosales Work Phone: [facility] Work Phone: 08-02-2021 09:18-0500 Systolic blood pressure 112 mm[Hg] Dr. Zo Rosales Work Phone: [facility] Work Phone: 08-02-2021 08:18-0500 Body mass index (BMI) [Ratio] 20.8 kg/m2 Dr. Zo Rosales Work Phone: [facility] Work Phone: 08-02-2021 08:18-0500 Body temperature 98.6 [degF] Dr. Zo Rosales Work Phone: [facility] Work Phone: 08-02-2021 08:18-0500 Body weight 51.[address] Zo Rosales Work Phone: [facility] Work Phone: 08-02-2021 08:18-0500 Diastolic blood pressure 70 mm[Hg] Dr. Zo Rosales Work Phone: [facility] Work Phone: 08-02-2021 08:18-0500 Heart rate 68 /min Dr. Zo Rosales Work Phone: [facility] Work Phone: 08-02-2021 08:18-0500 Respiratory rate 16 /min Dr. Zo Rosales Work Phone: [facility] Work Phone: 08-02-2021 08:18-0500 SaO2% (BldA) [Mass fraction] 99 % Dr. Zo Rosales Work Phone: [facility] Work Phone: 08-02-2021 08:18-0500 Systolic blood pressure 112 mm[Hg] Dr. Zo Rosales Work Phone: [facility] Work Phone: 05-18-2021 07:06-0500 Body temperature 98.5 [degF] Dr. Zo Rosales Work Phone: [facility] Work Phone: 05-18-2021 07:06-0500 Diastolic blood pressure 92 mm[Hg] Dr. Zo Rosales Work Phone: [facility] Work Phone: 05-18-2021 07:06-0500 Heart rate 52 /min Dr. Zo Rosales Work Phone: [facility] Work Phone: 05-18-2021 07:06-0500 Respiratory rate 16 /min Dr. Zo Rosales Work Phone: [facility] Work Phone: 05-18-2021 07:06-0500 SaO2% (BldA) [Mass fraction] 97 % Dr. Zo Rosales Work Phone: [facility] Work Phone: 05-18-2021 07:06-0500 Systolic blood pressure 148 mm[Hg] Dr. Zo Rosales Work Phone: [facility] Work Phone: 05-17-2021 09:11-0500 Body weight 48.[address] Zo Rosales Work Phone: [facility] Work Phone: 05-16-2021 14:37-0500 Body mass index (BMI) [Ratio] 20.4 kg/m2 Dr. Zo Rosales Work Phone: [facility] Work Phone: 05-16-2021 09:27-0500 Body mass index (BMI) [Ratio] 20.4 kg/m2 Dr. Zo Rosales Work Phone: [facility] Work Phone: 05-16-2021 09:27-0500 Body weight 48.[address] Zo Rosales Work Phone: [facility] Work Phone: 05-16-2021 09:27-0500 Diastolic blood pressure 86 mm[Hg] Dr. Zo Rosales Work Phone: [facility] Work Phone: 05-16-2021 09:27-0500 Heart rate 66 /min Dr. Zo Rosales Work Phone: [facility] Work Phone: 05-16-2021 09:27-0500 Respiratory rate 16 /min Dr. Zo Rosales Work Phone: [facility] Work Phone: 05-16-2021 09:27-0500 SaO2% (BldA) [Mass fraction] 97 % Dr. Zo Rosales Work Phone: [facility] Work Phone: 05-16-2021 09:27-0500 Systolic blood pressure 128 mm[Hg] Dr. Zo Rosales Work Phone: [facility] Work Phone: Encounters Encounter Date Encounter Type Care Provider Facility Start: 01-20-2025 ambulatory Zo Rosales Facility:[facility] Start: 12-13-2024 End: 12-13-[address] Zo Rosales MD Work Phone: -[facility] Start: 12-13-2024 End: 12-13-[address] Nolan Mayer MD -[facility] Work Phone: Start: 11-09-2024 End: 11-09-[address] Zo Rosales MD Work Phone: [facility] Work Phone: Start: 11-09-2024 End: 11-09-[address] Zo Rosales MD -[facility] [place] Work Phone: Start: 11-09-2024 End: 11-09-2024 ambulatory Zo Rosales Facility:[facility] Start: 09-30-2024 ambulatory Zo Rosales Facility:[facility] Start: 09-13-2024 End: 09-13-2024 ambulatory Nolan Mayer [place] [place]: 09-13-2024 End: 09-13-[address] Nolan Mayer MD -[facility] Work Phone: Start: 06-14-2024 End: 06-14-2024 ambulatory Zo Rosales Facility:[facility] Start: 05-24-2024 End: 05-24-2024 Patient encounter procedure Joni Soto PA-C Work Phone: Orthopaedics Comment on above: Impingement syndrome of right shoulder (Primary Dx); Bicipital tendinitis of right shoulder Start: 05-24-2024 End: 05-24-2024 ambulatory JONI SOTO Facility:[place] Start: 05-24-2024 End: 05-24-2024 Subsequent hospital visit by physician Orth General Xray [id number] Radiology Comment on above: Pain [R52] Start: 05-13-2024 End: 05-13-2024 ambulatory Zo Rosales Facility:[facility] Start: 04-13-2024 End: 04-13-2024 ambulatory Nolan Mayer Facility:[facility] Start: 03-15-2024 End: 03-15-2024 ambulatory Zo Rosales Facility:[facility] Start: 06-20-2023 End: 06-20-[address] Zo Rosales Work Phone: [facility] Work Phone: Start: 06-20-2023 End: 06-20-[address] Zo Rosales Work Phone: [facility] Work Phone: Start: 03-28-2023 End: 03-28-[address] Zo Rosales Work Phone: [facility] Work Phone: Start: 03-28-2023 End: 03-28-[address] Zo Rosales Work Phone: [facility]Cardi[facility] Services Work Phone: Start: 02-27-2023 End: 02-27-[address] Zo Rosales Work Phone: [facility] Work Phone: Start: 02-10-2023 Non-patient / Non-visit Dr. Osmany Rosales Work Phone: [facility] Work Phone: Start: 10-03-2021 End: 10-03-[address] Zo Rosales Work Phone: [facility] Start: 09-26-2021 End: 09-26-[address] Zo Rosales Work Phone: [facility] Start: 09-19-2021 End: 09-19-[address] Zo Rosales Work Phone: [facility] Start: 09-19-2021 End: 09-19-[address] Zo Rosales Work Phone: [facility] Start: 09-13-[address] Zo Rosales Work Phone: [facility]Physical Therapy Start: 09-07-2021 End: 09-07-[address] Zo Rosales Work Phone: [facility] Start: 09-04-[address] Zo Rosales Work Phone: [facility] Start: 08-31-2021 End: 08-31-[address] Zo Rosales Work Phone: [facility]-Outpatient Breast Imaging Start: 08-29-2021 End: 08-29-[address] Zo Rosales Work Phone: [facility] Start: 08-06-2021 End: 08-06-[address] Zo Rosales Work Phone: [facility] Start: 08-02-2021 End: 08-02-[address] Zo Rosales Work Phone: [facility] Start: 07-02-2021 End: 07-02-[address] Zo Rosales Work Phone: [facility] Start: 06-26-2021 End: 06-26-[address] Zo Rosales Work Phone: [facility] Start: 05-23-2021 End: 05-23-[address] Zo Rosales Work Phone: [facility] Start: 05-18-2021 End: 05-18-[address] Zo Rosales Work Phone: [facility] Start: 05-18-2021 Non-patient / Non-visit Dr. Osmany Rosales Work Phone: [facility] Start: 05-17-2021 End: 05-18-2021 Evaluation and management of inpatient Dr. Zo Rosales Work Phone: [facility]-Progressive Care Unit Start: 05-16-2021 End: 05-16-[address] Zo Rosales Work Phone: [facility] Start: 09-04-2020 End: 09-04-2020 Patient encounter procedure [facility] Start: 08-14-2020 End: 08-14-2020 Patient encounter procedure [facility] Start: 04-11-2020 End: 04-11-2020 Subsequent hospital visit by physician Waldemar Enriquez Work Phone: [facility] Comment on above: Family history of br east cancer Procedures Date Procedure Procedure Detail Performing Clinician Start: 11-09-2024 X-ray of chest, PA a nd lateral views Dr. Zo Rosales MD Work Phone: Start: 05-24-2024 Arthrocentesis aspir &/inj major jt/bursa w/o us Joni Soto PA-C Work Phone: Start: 05-24-2024 Radex shoulder compl ete minimum 2 views Joni Soto PA-C Work Phone: Start: 09-19-[address] Zo Rosales Work Phone: Start: 08-31-2021 Screening mammography Lee Rosales Work Phone: Start: 08-02-2021 Plain x-ray of pelvi s and lower extremity Dr. Zo Rosales Work Phone: Start: 07-02-2021 Plain x-ray of pelvi s and lower extremity Dr. Zo Rosales Work Phone: Start: 05-18-2021 Plain chest X-ray Dr. Mirella Rosales Work Phone: Start: 05-16-2021 Plain chest X-ray Dr. Mirella Rosales Work Phone: Start: 01-01-2012 Lipid 1996 panel - S ankita or Plasma Joni Soto PA-C Work Phone: Plan of Treatment Date Care Activity Detail Author Start: 2036 RSV Vaccine (1 - 1-d ose 75+ series) RSV Vaccine (1 - 1-dose 75+ series) [facility] Start: 02-01-2024 Covid-19 Vaccine ( season) Covid-19 Vaccine ( season) [facility] Start: 02-01-2024 Influenza vaccination Influenza Vacc ine (#1) [facility] Start: 05-09-2020 End: 05-09-2020 Telehealth Ancillary 05/09/2020 Telehealth Ancillary Genetics Marianne Jordan, [facility] [place] [address] [facility] Start: 02-01-2020 FLU (#1) FLU (#1) [facility] Start: 03-20-2017 Screening for malign ant neoplasm of cervix Cervical Cancer Screening [facility] Start: 12-31-2016 Lipid panel Lipid Screening [facility] Start: 04-06-2015 Diabetes Screening Diabetes Screenin g [facility] Start: 09-30-2012 Screening for malign ant neoplasm of breast Mammogram Screening [facility] Start: 09-30-2011 Pneumococcal Vaccine : 50+ (1 of 1 - PCV) Pneumococcal Vaccine: 50+ (1 of 1 - PCV) [facility] Start: 09-30-2011 Shingrix Vaccine (1 of 2) Shingrix Vaccine (1 of 2) [facility] Start: 2006 Screening for malign ant neoplasm of colon [facility] Start: 01-29-1988 Urine microalbumin profile DTaP,Tdap,Td Vaccine (2 - Tdap) [facility] Start: 1982 Microscopic observat ion Cyto stain Nom (Cvx) Pap Smear [facility] Start: 1980 Hepatitis B (1 of 3 - Risk 3-dose series) Hepatitis B (1 of 3 - Risk 3-dose series) [facility] Start: 09-30-1979 Anxiety Screening Anxiety Screening [facility] Start: 09-30-1979 Depression Screening Depression Scre ening [facility] Start: 09-30-1979 Hepatitis C screening Hepatitis C Sc reening [facility] Start: 09-30-1979 HIV screening HIV Screening [facility] Start: 1977 MenB (1 of 2 - MenB 2-Dose Series) MenB (1 of 2 - MenB 2-Dose Series) [facility] Start: 1968 Tetanus Diphtheria a nd Pertussis Vaccines (1 - Tdap) Tetanus Diphtheria and Pertussis Vaccines (1 - Tdap) [facility] Start: 1962 Hepatitis A (1 of 2 - Risk 2-dose series) Hepatitis A (1 of 2 - Risk 2-dose series) [facility] Start: 1962 MMR (1 of 1 - Standa rd series) MMR (1 of 1 - Standard series) [facility] Start: 1962 Varicella (1 of 2 - 2-dose childhood series) Varicella (1 of 2 - 2-dose childhood series) [facility] End: 04-11-2020 Genetic Sendout: CancerNext Panel with [facility] Genetic Sendout: CancerNext Panel with [facility] Lab Timed Family history of breast cancer 1 Occurrences starting 04/11/2020 until 04/11/2020 [facility] Comment on above: 1 Occurrences starti ng 04/11/2020 until 04/11/2020 Genetic Sendout: CancerNext Panel with [facility] Genetic Sendout: CancerNext Panel with [facility] Lab Routine Family history of breast cancer 04/11/2020 12:00 AM EST [facility] Patient referral [facility] Work Phone: Immunizations Immunization Date Immunization Notes Care Provider Arely reyna 09-04-2020 COVID-19 original vaccine, age 12+ yr, monovalent (PFIZER-BIONTECH - PURPLE TOP) Joni Parkella PA-C Work Phone: [facility] 08-14-2020 COVID-19 original vaccine, age 12+ yr, monovalent (PFIZER-BIONTECH - PURPLE TOP) Joni Parkella PA-C Work Phone: [facility] 04-21-[address] Zo Rosales Work Phone: [facility] 04-21-2020 influenza virus vaccine, unspecified formulation Joni Parkella PA-C Work Phone: [facility] 01-28-1978 diphtheria and tetan us toxoids, adsorbed for pediatric use Joni Soto PA-C Work Phone: [facility] 01-28-1978 rubella virus vaccine Preet Parkella PA-C Work Phone: [facility] 01-28-1978 trivalent poliovirus vaccine, live, oral Joni Stoo PA-C Work Phone: [facility] Payers Date Payer Category Payer Unknown [id number] 2024 Self-pay [id number] 2022 Unknown [employer] PPO [id number] 2022-Present [phone] [address] [place] [address] PPO [id number] 2022 Unknown [id number] 2019 Private Health Insurance VERONICA NGUYEN [id number] 2019-Present [address] [id number] 2013 Private Health Insurance [id number] 1960 Unknown [id number]. 651 1960 Unknown [id number] [id number]. 651 Unknown [id number] [id number]. 462 Unknown [id number] 2.16.840.1.345907.3.579.2. 462 Unknown [id number] 2.16.840.1.085704.3.579.2. 462 Unknown [id number] 2.16.840.1.367450.3.579.2. 462 Unknown [id number] 2.16.840.1.015387.3.579.2. 462 Unknown [id number] 2.16.840.1.705553.3.579.2. 462 Unknown [id number] 2.16.840.1.820316.3.579.2. 462 Unknown [id number] 2.16.840.1.615899.3.579.2. 462 Unknown [id number] 2.16.840.1.793109.3.579.2. 462 Unknown [id number] 2.16.840.1.737106.3.579.2. 462 Unknown [id number] 2.16.840.1.665133.3.579.2. 462 Unknown [id number] 2.16.840.1.429435.3.579.2. 462 Unknown [id number] 2.16.840.1.491101.3.579.2. 462 Unknown [id number] 2.16.840.1.177115.3.579.2. 462 Unknown [id number] [id number]. 462 Social History Date Type Detail Facility Start: 04-11-2020 End: 02-27-2023 Tobacco smoking status NHIS Never smoker [facility] Start: 03-20-2012 End: 04-11-2020 Tobacco use and exposure Never used [facility] Start: 1960 Sex Assigned At Not on file [facility] Exposure to SARS-CoV -2 (event) Not sure [facility] Start: 08-29-2021 End: 02-27-2023 Tobacco smoking status IDIS Unknown if ever smoked [facility] Start: 05-03-2020 Non-smoker [facility] Start: 1960 Sex Assigned At Female W [facility] Start: 01-16-2022 Alcoholic beverage intake Current drinker of alcohol (finding) [facility] Start: 01-16-2022 End: 05-24-2024 History of Social function [facility] Start: 01-16-2022 End: 05-24-2024 Tobacco use panel [facility] National Score (1-10 0), lower number is lower risk 69 [facility] Medical Equipment Procedure Code Equipment Code Equipment Origin al Text Equipment Identifier Dates ([id number]) Dual-chamber implantable pacemaker, rate-responsive ()[id number] FDA Start: 05-17-2021 ([id number]) Endocardial paci ng lead ()[id number] [id number] FDA Start: 05-17-2021 ([id number]) Endocardial paci ng lead ()[id number] FDA Start: 05-17-2021 Functional Status Date Assessment Result Facility 05-18-2021 Functional status Bedrest [facility] Work Phone: Mental Status Date Assessment Result Facility 05-18-2021 Cognitive function Voice/Name [facility] Work Phone: Clinical Notes 05-17-2021 to 11-10-2024 Patient InstructionsJoni Soto PA-C - 05/24/2024 10:44 AM EST Note Date & Type Note Facility 11-10-2024 Radiology Diagnostic study note [facility] Imaging Services [address] [place] [address] Chest PA and Lateral MR#: [id number] Acct: [id number] Name: IGNACIO ROSALES Rep #: [id number] : 1960 F 64 From: Amilcar Mcintosh MD PCP: Dr. Zo Rosales MD Status: REG CLI Study:Chest PA and Lateral Date of Exam: 11/09/24 Exam# [id number] Ordering Dr: Osmany Rosales MD PROCEDURE: CHEST PA AND LATERAL 11/09/2024 REASON FOR EXAM: COUGH TECHNIQUE: Frontal and lateral views of the chest. COMPARISON: 05/18/2021. FINDINGS: AICD is in good position. The lungs are emphysematous. There is no demonstrated acute parenchymal abnormality. There is no demonstrated pleural abnormality. Normal heart and pericardium. Normal mediastinum and elias. Normal visualized pulmonary arteries. Normal visualized aortic arch and descending thoracic aorta. Normal visualized thoracic spine. Normal visualized ribs, clavicles, and shoulders. There is no demonstrated abnormality of the visualized soft tissue structures ofthe upper abdomen. RAD/Chest PA and Lateral IMPRESSION: No radiographic evidence of an acute abnormality. [facility] CC: Dr. Zo Rosales MD ~ Clinical Research Associate: Signed [facility] 05-24-2024 Instructions Joni Soto PA-C - 05/24/2024 10:47 AM EST #1 You obtained a cortisone injection today, into your right shoulder. If you do have some discomfort from the injection, you can take [id number] Tylenol as directed on the bottle. The injection might take a few days for up to week before you see the full effect. #2 I would recommend starting physical therapy when you do return from your trip. documented in this encounter [facility] 05-24-2024 Note HNO ID: [id number] Author: JONI SOTO PA-C Service: ? Author Type: Physician [employer] Technician Type: Progress Notes Filed: 05/24/2024 11:03 Note Text: DEPARTMENT OF ORTHOPAEDICS CHIEF COMPLAINT: Ignacio Rosales is a 63 year old female who presents today for new evaluation of right shoulder pain. HISTORY OF PRESENT ILLNESS: This is a 63-year-old female who is right-hand dominant. He is retired. She has had no injury. She has been complaining on and off discomfort within her right shoulder for the past 6 months. The patient does swim a lot. She does not do a lot of weight lifting for strength. She utilizes ice for treatment if need be. She presents today for an exam, along with x-rays of the right shoulder. PAIN EVALUATION 05/24/2024 0955 Pain Level: 2 Pain Location: Shoulder-Right Description: Aching;Throbbing Duration Amount of Time: 6 Duration Units: Months Frequency: Continuous Intervention/Comfort measure: Cold REVIEW OF SYMPTOMS: Constitutional: patient denies any recent fever or significant change in weight Gastrointestinal: patient denies any current abdominal discomfort Musculoskeletal: as noted in the HPI Neurologic: as noted in the HPI SOCIAL HISTORY: Tobacco Use: Never ALLERGIES: ALLERGIES Allergen Reactions Latex Swelling latex the dust in the gloves PAST MEDICAL HISTORY: PAST MEDICAL HISTORY Diagnosis Date Abnormal mammogram, unspecified 06/08/07 right breast Abnormal Pap smear Excessive menstruation Mammographic microcalcification 06/08/07 PONV (postoperative nausea and vomiting) PHYSICAL EXAMINATION: Patient's vitals and nursing notes were reviewed. Vitals: LMP 04/02/2012 Skin: Skin color, texture, turgor normal, no suspicious rashes or lesions noted Psychiatric: mood and affect are appropriate, patient is oriented to time, place and person General Appearance: Well appearing, alert, in no acute distress, well-hydrated, and well nourished Cardiovascular: radial pulses normal, no signs of upper extremity edema Respiratory: no respiratory distress, no audible wheezing, no labored breathing, symmetric thoracic excursion Neurologic: sensation is grossly intact Musculoskeletal Examination: Examination of the right shoulder: Inspection: Bilateral rounded shoulders. Shoulder Range of Motion: Flexion: normal at 150-180 degrees Abduction: normal at 125-150 degrees External rotation: Normal at 80-90 degrees Apley scratch test (internal rotation): Right arm: patient able to reach to T11 Left arm: patient able to reach to T11 SC JOINT: no tenderness to palpation AC JOINT: no tenderness to palpation Scapula exam: normal examination of scapula with no dyskinetic motion noted Priscilla Test / Empty Can Test (supraspinatus): normal examination with no pain or weakness elicited Resisted lateral rotation test (infraspinatus): normal examination with no pain or weakness elicited Speed's test: pain elicited at the bicepital groove Vidal test: pain elicited at the anterior shoulder Neer test: pain elicited at the anterior shoulder IMAGING: Final results and radiologist's interpretation, available in the [facility] health record. Images were reviewed with the patient/family members in the office today. My personal interpretation of the performed imaging is minimal arthritic change noted over the AC joint. Patient does have pacemaker noted. CLINICAL IMPRESSION / ASSESSMENT: (M75.41) Impingement syndrome of right shoulder (primary encounter diagnosis) (M75.21) Bicipital tendinitis of right shoulder RECOMMENDATION / PLAN: We did discuss treatment, this would consist of conservative treatment, consisting of physical therapy, she was given information for this. The patient did opt for injection/procedure noted below which she tolerated well. Patient was given postinjection instructions. The patient was advised to follow-up with me as needed. Verbal health education was given to patient. Patient verbalizes understanding and agrees with the treatment plan as detailed above. I spent a total of 30 minutes on the date of the service which included preparing to see the patient, [id number] patient care, completing clinical documentation, obtaining and/or reviewing separately obtained history, performing a medically appropriate examination, counseling and educating the patient/family/caregiver, ordering medications, tests, or procedures, independently interpreting results (not separately reported), and communicating results to the patient/family/caregiver. Joni Soto MA (TJ), PA-C Orthopaedic Surgery [facility] [place] Note: This dictation was created using voice recognition software. In addition to the comprehensive evaluation, assessment and plan outlined above, and as a distinct and separate element to the visit today, separate fro (more content not included)... [facility] 05-24-2024 History of Present illness Narrative Associated Order(s): Large Joint Arthro/Inj: R subacromial bursa Post-Procedure Diagnose(s): Impingement syndrome of right shoulder; Bicipital tendinitis of right shoulder Images from the original note were not included. DEPARTMENT OF ORTHOPAEDICS CHIEF COMPLAINT: Ignacio Rosales is a 63 year old female who presents today for new evaluation of right shoulder pain. HISTORY OF PRESENT ILLNESS: This is a 63-year-old female who is right-hand dominant. He is retired. She has had no injury. She has been complaining on and off discomfort within her right shoulder for the past 6 months. The patient does swim a lot. She does not do a lot of weight lifting for strength. She utilizes ice for treatment if need be. She presents today for an exam, along with x-rays of the right shoulder. PAIN EVALUATION 05/24/2024 0955 Pain Level: 2 Pain Location: Shoulder-Right Description: Aching;Throbbing Duration Amount of Time: 6 Duration Units: Months Frequency: Continuous Intervention/Comfort measure: Cold REVIEW OF SYMPTOMS: Constitutional: patient denies any recent fever or significant change in weight Gastrointestinal: patient denies any current abdominal discomfort Musculoskeletal: as noted in the HPI Neurologic: as noted in the HPI SOCIAL HISTORY: Tobacco Use: Never ALLERGIES: ALLERGIES Allergen Reactions Latex Swelling latex the dust in the gloves PAST MEDICAL HISTORY: PAST MEDICAL HISTORY Diagnosis Date Abnormal mammogram, unspecified 06/08/07 right breast Abnormal Pap smear Excessive menstruation Mammographic microcalcification 06/08/07 PONV (postoperative nausea and vomiting) PHYSICAL EXAMINATION: Patient's vitals and nursing notes were reviewed. Vitals: LMP 04/02/2012 Skin: Skin color, texture, turgor normal, no suspicious rashes or lesions noted Psychiatric: mood and affect are appropriate, patient is oriented to time, place and person General Appearance: Well appearing, alert, in no acute distress, well-hydrated, and well nourished Cardiovascular: radial pulses normal, no signs of upper extremity edema Respiratory: no respiratory distress, no audible wheezing, no labored breathing, symmetric thoracic excursion Neurologic: sensation is grossly intact Musculoskeletal Examination: Examination of the right shoulder: Inspection: Bilateral rounded shoulders. Shoulder Range of Motion: Flexion: normal at 150-180 degrees Abduction: normal at 125-150 degrees External rotation: Normal at 80-90 degrees Apley scratch test (internal rotation): Right arm: patient able to reach to T11 Left arm: patient able to reach to T11 SC JOINT: no tenderness to palpation AC JOINT: no tenderness to palpation Scapula exam: normal examination of scapula with no dyskinetic motion noted Priscilla Test / Empty Can Test (supraspinatus): normal examination with no pain or weakness elicited Resisted lateral rotation test (infraspinatus): normal examination with no pain or weakness elicited Speed's test: pain elicited at the bicepital groove Vidal test: pain elicited at the anterior shoulder Neer test: pain elicited at the anterior shoulder IMAGING: Final results and radiologist's interpretation, available in the [facility] health record. Images were reviewed with the patient/family members in the office today. My personal interpretation of the performed imaging is minimal arthritic change noted over the AC joint. Patient does have pacemaker noted. CLINICAL IMPRESSION / ASSESSMENT: (M75.41) Impingement syndrome of right shoulder (primary encounter diagnosis) (M75.21) Bicipital tendinitis of right shoulder RECOMMENDATION / PLAN: We did discuss treatment, this would consist of conservative treatment, consisting of physical therapy, she was given information for this. The patient did opt for injection/procedure noted below which she tolerated well. Patient was given postinjection instructions. The patient was advised to follow-up with me as needed. Verbal health education was given to patient. Patient verbalizes understanding and agrees with the treatment plan as detailed above. I spent a total of 30 minutes on the date of the service which included preparing to see the patient, [id number] patient care, completing clinical documentation, obtaining and/or reviewing separately obtained history, performing a medically appropriate examination, counseling and educating the patient/family/caregiver, ordering medications, tests, or procedures, independently interpreting results (not separately reported), and communicating results to the patient/family/caregiver. Joni (DAMION) Alhaji Soto MA, PA-C Orthopaedic Surgery [facility] [place] Note: This dictation was created using voice recognition software. In addition to the comprehensive evaluation, assessment and plan outlined above, and as a distinct and separate element to the visit today, separate from the separate complaint of as noted above , we have made the determination to proceed with an injection to aid in the management of the patient's condition. We discussed the risks, benefits, alternatives and expected outcomes of this injection in detail, and the patient agreed to proceed. The procedure was performed as detailed below. Large Joint Arthro/Inj: R subacromial bursa Informed Consent Consent Obtained: Verbal [place] Protocol A moment to CARE was completed. SIGN IN Personnel directly involved with the procedure wore the appropriate PPE. Special Equipment: N/A Patient/Surrogate Stated/Verified: Patient name, Date of , Relevant allergies and Intended procedure TIME OUT Intended patient and procedure match the source document(s). Consent documented and matches the intended procedure. Relevant labs, photos, and/or imaging studies have been reviewed. Correct side/site marked and visible. Medications required for procedure verified. No fire risk assessment and interventions applicable. No implant(s) inserted. 05/24/2024 10:46 AM The procedure site was prepped in the usual sterile fashion. Site: R subacromial bursa Medications: 40 mg triamcinolone acetonide 40 mg/mL Anesthetics: 3 mL lidocaine (PF) 10 mg/mL (1 %) Outcome: Tolerated well, no immediate complications Post-injection instructions were reviewed with the patient and the patient voiced understanding of these instructions. SIGN OUT No specimen collected. All instruments, equipment, possible retained foreign bodies accounted for. Post-procedure follow-up management communicated and Plan of Care Visit completed when applicable Right shoulder, subacromial injection, posterior approach. documented in this encounter [facility] 05-17-2021 Evaluation note Diagnosis Onset Date Sinus arrest acute Sinus arrest acute Sinus pause acute History of permanent cardiac pacemaker placement May 17, 2021 acute History of permanent cardiac pacemaker placement May 17, 2021 acute Sinus arrest acute Sinus pause acute Near syncope resolved History of permanent cardiac pacemaker placement May 17, 2021 acute Sinus arrest acute History of permanent cardiac pacemaker placement May 17, 2021 acute Sinus arrest acute Sinus pause acute Left hamstring muscle strain resolved Abrasion, left knee, initial encounter resolved Strain of right hip resolved History of permanent cardiac pacemaker placement May 17, 2021 acute Sinus pause acute [facility] Work Phone: 1(951) 510-487412-16-2021 Evaluation note* Diagnosis Onset Date Resolution Status History of permanent cardiac pacemaker placement May 17, 2021 acute Sinus arrest acute Sinus pause acute Left hamstring muscle strain resolved Abrasion, left knee, initial encounter resolved Strain of right hip resolved History of permanent cardiac pacemaker placement May 17, 2021 acute Sinus pause acute History of permanent cardiac pacemaker placement May 17, 2021 acute Sinus arrest acute Sinus pause acute [facility] Work Phone: 1(285) 249-131812-16-2021 Evaluation note* Diagnosis Onset Date Resolution Status Abrasion, left knee, initial encounter resolved Strain of right hip resolved Right buttock pain noneactiv e History of permanent cardiac pacemaker placement May 17, 2021 acute Sinus pause acute History of permanent cardiac pacemaker placement May 17, 2021 acute Sinus arrest acute Sinus pause acute History of permanent cardiac pacemaker placement May 17, 2021 acute Sinus arrest acute Sinus pause acute Hamstring tendonitis of right thigh acute [facility] Work Phone: 1(935) 416-142912-16-2021 Evaluation note* Diagnosis Onset Date Resolution Status History of permanent cardiac pacemaker placement May 17, 2021 acute High blood pressure chronic History of permanent cardiac pacemaker placement May 17, 2021 acute Sinus pause chronic [facility] Work Phone: Evaluation note* Diagnosis Impingement syndrome of right shoulder- Primary Other affections of shoulder region, not elsewhere classified Bicipital tendinitis of right shoulder Bicipital tenosynovitis documented in this [facility] Diagnosis Pain Generalized pain documented in this encounter [facility] noteNo assessment information [facility] Work Phone: Reojjj for referral (narrative)* Diagnostic Procedure Only (Routine) - Closed Specialty Diagnoses / Procedures Referred By Contac t Referred To Contact XR IMAGING Diagnoses Pain Procedures XR SHOULDER GENERAL 3V OR MORE AP/TRUE AP/OTHER RIGHT RADEX SHOULDER COMPLETE MINIMUM 2 VIEWS Joni Soto PA-C [address] [place] [address] Xr Imaging [place] [address] Referral ID Status Reason Start Date Expiration Date V isits Requested Visits Authorized [id number] Closed Auto-Generate d Referral 05/11/2024 06/10/2025 1 1 [facility] for referral (narrative)No reason for referral information availableWMercy Health [facility] Work Phone: Rehdjl for visit Narrative* Diagnostic Procedure Only (Routine) - Closed Specialty Diagnoses / Procedures Referred By Contac t Referred To Contact XR IMAGING Diagnoses Pain Procedures XR SHOULDER GENERAL 3V OR MORE AP/TRUE AP/OTHER RIGHT RADEX SHOULDER COMPLETE MINIMUM 2 VIEWS Joni Soto PA-C [address] [place] [address] [facility] [place] [address] Referral ID Status Reason Start Date Expiration Date V isits Requested Visits Authorized [id number] Closed Auto-Generate d Referral 05/11/2024 06/10/2025 1 1 [facility] Reason for Referral Status Reason Specialty Diagnoses / Procedures Referred By Contact Referred To Contact [facility] Required Lab Diagnoses Family history of breast cancer Procedures Genetic Sendout: CancerNext Panel [place] [address] Specialty Diagnoses / Procedures Referred By Contac t Referred To Contact [facility] Diagnoses Impingement syndrome of right shoulder Bicipital tendinitis of right shoulder Procedures CONSULT TO PHYSICAL THERAPY PHYSICAL THERAPY EVALUATION HIGH COMPLEX 45 MINS Joni Soto PA-C [address] [place] [address] [facility] [place] [address] [place] [address] Referral ID Status Reason Start Date Expiration Date Visits Requested Visits Authorized [id number] Pending Review Auto-Generat ed Referral 4 05/24/2025 1 1 Assessments Diagnosis Family history of breast cancer Family history of malignant neoplasm of breast Advance Directives No Advanced Directives Records FoundDocuments on File Type Date Recorded Patient Manager Respiratory Expl anation Power of Polymer Scientist Advance Directive Response Recorded Date/ Time Advance Directives Yes June 29, 2021 10:28am Living Will Yes June 29 10:28am Power of Polymer Scientist Yes June 29, 2021 10:28am Advance Directives on File No Decem 2020 11:11am Advance Directive Response Recorded Date/ Time Advance Directives Yes June 29, 2021 10:28am Living Will Yes June 29 10:28am Power of Polymer Scientist Yes June 29, 2021 10:28am Advance Directive Response Recorded Date/ Time Advance Directives Yes June 29, 2021 9:28am Living Will Yes June 29 9:28am Power of Polymer Scientist Yes June 29, 2021 9:28am Advance Directive Response Recorded Date/ Time Advance Directives Yes June 29, 2021 10:28am Summary Purpose Family History No Family History Records Found Relationship Condition Age at Onset Recorded Date/T laure grandmother Malignant neoplasm of breast Unknown Malignant neoplasm Unknown father Coronary artery disease Unknown grandfather Malignant neoplasm Unknown sister Coronary artery disease Unknown Chief Complaint and Reason for Visit Chief Complaint DIZZY (MACK) teaching SINUS PAUSE, DIZZINESS SINUS PAUSE, DIZZINESS INPATIENT s/p PPM implant f/u 1 wk s/p PPM implant check 6 wk post PPM implant f/u LEFT HIP xray HIP INJURY HIP XRAY Lt Gluteus pain 3 M FU (MOVED FROM [facility] 08/28) SCREENING RT HAMSTRING INJURY,(POSSIBLE TEAR)/RX HERE Reason for Visit Sinus arrest Sinus arrest Sinus pause History of permanent cardiac pacemaker placement History of permanent cardiac pacemaker placement Sinus arrest Sinus pause Near syncope History of permanent cardiac pacemaker placement Sinus arrest History of permanent cardiac pacemaker placement Sinus arrest Sinus pause Left hamstring muscle strain Abrasion, left knee, initial encounter Strain of right hip History of permanent cardiac pacemaker placement Sinus pause Chief Complaint 6 wk post PPM implan t f/u LEFT HIP xray HIP INJURY HIP XRAY Lt Gluteus pain 3 M FU (MOVED FROM [facility] 08/28) SCREENING RT HAMSTRING INJURY,(POSSIBLE TEAR)/RX HERE RIGHT HIGH FEMUR ISHIUM PAIN HAMSTRING PAIN MRI follow up Reason for Visit History of permanent cardiac pacemaker placement Sinus arrest Sinus pause Left hamstring muscle strain Abrasion, left knee, initial encounter Strain of right hip History of permanent cardiac pacemaker placement Sinus pause History of permanent cardiac pacemaker placement Sinus arrest Sinus pause Chief Complaint HIP INJURY HIP XRAY Lt Gluteus pain 3 M FU (MOVED FROM [facility] 08/28) SCREENING RT HAMSTRING INJURY,(POSSIBLE TEAR)/RX HERE RIGHT HIGH FEMUR ISHIUM PAIN HAMSTRING PAIN MRI follow up 3 mos remote PPM f/u hip pain Reason for Visit Abrasion, left knee, initial encounter Strain of right hip Right buttock pain History of permanent cardiac pacemaker placement Sinus pause History of permanent cardiac pacemaker placement Sinus arrest Sinus pause History of permanent cardiac pacemaker placement Sinus arrest Sinus pause Hamstring tendonitis of right thigh Chief Complaint Amb Documentation annual in-clinic 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 Essential (primary) hypertension Reason for Visit History of permanent cardiac pacemaker placement High blood pressure History of permanent cardiac pacemaker placement Sinus pause Chief Complaint annual in-clinic 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 Essential (primary) hypertension Reason for Visit History of permanent cardiac pacemaker placement High blood pressure History of permanent cardiac pacemaker placement Sinus pause Chief Complaint Admit Date Pacer Check Remote September 13, 2024 2:3 7am Cough November 09, 2024 3:16 pm Chief Complaint Admit Date Pacer Check Remote September 13, 2024 2:3 7am Cough November 09, 2024 3:16 pm Pacer Check Remote December 13, 2024 2:11 am Additional Source Comments Reason for Visit (unrecogniz ed section and content) Status Reason Specialty Diagnoses / Procedures Referred By Contact Referred To Contact [facility] Required Lab Diagnoses Family history of breast cancer Procedures Genetic Sendout: CancerNext Panel [place] [address] Reason Comments Pain New INFORMATION SOURCE (unrecogn ized section and content) DATE CREATED AUTHOR 09/12/2020 Prakash Lewisopal [facility] DATE CREATED AUTHOR AUTHOR'S ORGANIZ ATION 05/26/2024 [facility] DATE CREATED AUTHOR AUTHOR'S ORGANIZ ATION 01/19/2025 [facility] Goals (unrecognized section and content) Goals may be documented in a n alternate sectionGoals may be documented in an alternate sectionGoals may be documented in an alternate sectionGoals may be documented in an alternate sectionGoals may be documented in an alternate sectionGoals may be documented in an alternate sectionGoals may be documented in an alternate section Care Teams (unrecognized sec tion and content) Team Status: Active Member Role Status Dates Dr. Zo Rosales MD Family Provider Active Dr. Zo Rosales MD Primary Care Provider Active Team Status: Inactive Member Role Status Dates Dr. Zo Rosales MD Primary Care Provider, Referring P antwan Active Caity Shabazz Attending Provider Active Team Status: Active Member Role Status Dates Dr. Zo Rosales MD Primary Care Provider Active Zee Ramirez Attending Provider Active Team Status: Inactive Member Role Status Dates Dr. Zo Rosales MD Primary Care Provider Active Dr. Nolan Mayer MD Attending Provider, Referring Pro vider Active Team Status: Inactive Member Role Status Dates Dr. Zo Rosales MD Primary Care Provide r, Attending Provider, Referring Provider Active Laminator Preforms Relationship Specialty Start Date End Date Zo Rosales MD [address] [facility] [place] [address] PCP - General Family Medicine 04/22/17 Laminator Preforms Relationship Specialty Start Date End Date Zo Rosales MD [address] [facility] [place] [address] PCP - General Family Medicine 04/22/17 Team Status: Active Member Role Status Dates Dr. Zo Rosales MD Primary Care Provider Active Team Status: Inactive Member Role Status Dates Dr. Zo Rosales MD Primary Care Provider Active Start: September 13, 2024 End: September 13, 2024 Dr. Nolan Mayer MD Attending Provider Active S tart: September 13, 2024 End: September 13, 2024 Team Status: Inactive Member Role Status Dates Dr. Zo Rosales MD Primary Care Provider Active Start: November 09, 2024 End: November 09, 2024 Dr. Zo Rosales MD Attending Provider Active St art: November 09, 2024 End: November 09, 2024 Dr. Zo Rosales MD Referring Provider Active St art: November 09, 2024 End: November 09, 2024 Team Status: Active Member Role/Relationship Status Dates Dr. Zo Rosales MD Primary Care Provider Active Team Status: Inactive Member Role/Relationship Status Dates Dr. oZ Rosales MD Primary Care Provider Active Start: September 13, 2024 End: September 13, 2024 Dr. Nolan Mayer MD Attending Provider Active S tart: September 13, 2024 End: September 13, 2024 Team Status: Inactive Member Role/Relationship Status Dates Dr. Zo Rosales MD Primary Care Provider Active Start: November 09, 2024 End: November 09, 2024 Dr. Zo Rosales MD Attending Provider Active St art: November 09, 2024 End: November 09, 2024 Dr. Zo Rosales MD Referring Provider Active St art: November 09, 2024 End: November 09, 2024 Team Status: Inactive Member Role/Relationship Status Dates Dr. Zo Rosales MD Primary Care Provider Active Start: December 13, 2024 End: December 13, 2024 Dr. Nolan Mayer MD Attending Provider Active S tart: December 13, 2024 End: December 13, 2024 Source Comments (unrecognize d section and content) In the event this informatio n is protected by the Federal Confidentiality of Alcohol and Drug Abuse Patient Records regulations: The Federal rules restrict any use of the information to criminally investigate or prosecute any alcohol or drug abuse patient.[facility] the event this information is protected by the Federal Confidentiality of Alcohol and Drug Abuse Patient Records regulations: The Federal rules restrict any use of the information to criminally investigate or prosecute any alcohol or drug abuse patient.[facility] FOR RECORDS PERTAINING TO PATIENTS WHO ARE [...] BE BASED ON THE PRIMARY CLINICAL RECORDS. [facility] [employer] [facility]. provides no warranty or guarantee of the accuracy or completeness of information in this document.
== END | disposition home or self-care (01) ==
LOC: CT 06:20
PROVIDERS: PCP Family Medicine; Referring Provider Family Medicine; Visit Provider Family Medicine
DX: R05.3 Chronic cough (principal)
CPT/HCPCS: 71260; Q9967